=== PATIENT | male | born 1970 | race Caucasian/White ===

== ENCOUNTER 2021-06-26 11:42 | Outpatient (CLI) | payer OTHER, SELFPAY ==
[2021-06-26 11:48] VITALS: BMI 33.9
[2021-06-26 11:51] VITALS: BP 154/102; PULSE 73; RESP 19; TEMP 36.3; O2SAT 99
[2021-06-26 12:40] VITALS: BP 166/103; PULSE 81; RESP 16; O2SAT 97
[2021-06-26 13:38] VITALS: BP 149/97; PULSE 79; RESP 18; TEMP 36.9; O2SAT 95
== END 2021-06-26 11:43 | disposition home or self-care (01) ==
LOC: OPS 11:45
PROVIDERS: PCP Nurse Practitioner Family; Visit Provider Nurse Practitioner Family
DX: U07.1 COVID-19 (principal)
CPT/HCPCS: 96365

== ENCOUNTER 2022-11-01 06:53 | Day surgery (SDC) | payer OTHER, SELFPAY ==
[2022-10-30 09:33] VITALS: BMI 35.4
[2022-11-01 07:19] VITALS: BP 131/102; PULSE 75; RESP 16; TEMP 36.3; O2SAT 95
[2022-11-01] MEDS: sodium chloride 0.9% 1,000 ML 30 ML IV (07:27)
--- NOTE | 2022-11-01 08:01 | ANES.PREANE2 ---
Pre-Anesthetic Assessment Height/Weight: Height 1.83 m Weight 118.388 kg Temp Pulse Resp BP Pulse Ox O2 Del Method 97.4 F L 75 16 131/102 95 Room Air 11/01/22 07:19 11/01/22 07:19 11/01/22 07:19 11/01/22 07:19 11/01/22 07:19 11/01/22 07:19 Preop Diagnosis: GERD, Screening, Hematochezia, Nausea, Epigastric Pain. Operation Date: 11/01/22 08:30 Proposed Procedures p [address] egd, [address] colon K21.9,Z12.11, K92.1,R11.0,R10.13(Not Applicable) - DO alma Arias Colonoscopy(Not Applicable) - Marlon Garcias DO Familial anesthetic complications: none Was Beta Toni taken within 24 hours: N/A Was Clonidine taken within 24 hours: N/A Last intake: Intake Last Liquid Date 10/31/22 Last Liquid Time 22:00 Last Solid Date 10/30/22 Last Solid Time 00:00 Social No alcohol and No tobacco Exam alert, oriented x 3, clear to auscultation bilaterally and regular rate & rhythm Airway Submandibular: within normal limits Cervical ROM: within normal limits Mallampati: Class I Dentition: full Comments: Comments: micronathia Pulmonary Shortness of Breath CV/HEM Stable Angina Patient states he has SOB and epigastric pain that sometimes radiates to his back describes it as sharp. No personal cardiac history and no family history reports METS>4. 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 EKG ordered. None reported Hepatic None reported GI Gastroesophageal Reflux Disease epigastric pain, bloating. Metabolic None reported Musc/skel Lower Back Pain and Osteoarthritis/DJD Neuropsych None reported Anesthetic Plan ASA status: 2 Medications/Allergies Home Medications Medication Instructions Recorded Confirmed Last Taken Type tamsulosin 0.4 mg capsule (Flomax) 0.4 mg PO BID 90 days #180 caps 08/06/22 11/01/22 10/31/22 Rx pantoprazole 40 mg tablet,delayed 40 mg PO DAILY 10/30/22 11/01/22 10/31/22 History release (Protonix) hydrocortisone 2.5 % topical cream 1 applic [place] QID 10 days #30 grams 11/01/22 Unknown Rx with perineal applicator (Procto-Med HC) Allergies Allergy/AdvReac Type Severity Reaction Status Date / Time No Known Allergies Allergy Verified 10/29/22 10:49 Current Medications Generic Name Dose Route Start Last Admin Trade Name Ruben PRN Reason Stop Dose Admin Sodium Chloride 1,000 mls @ 30 mls/hr 11/01/22 07:00 11/01/22 07:27 Sodium Chloride 0.9% IV 11/02/22 06:59 30 mls/hr .Q24H YESSY Administration PFSH Anesthesia Surgical History (Updated 10/29/22 @ 11:55 by Marlon Garcias DO) Hx of hand surgery Right hand/ digit 3 Family History Father Cancer carcinoma Social History Smoking and tobacco status: never smoked Alcohol intake: never Data Anesthesia Cardiac Studies: No Data to Display
--- NOTE | 2022-11-01 08:07 | ECG_ITS ---
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 Measurements Intervals [place] Rate: 65 P: 23 MN: 226 QRS: -5 QRSD: 98 T: 62 QT: 416 QTc: 434 Interpretive Statements SINUS RHYTHM WITH FIRST DEGREE AV BLOCK INFERIOR MYOCARDIAL INFARCTION , PROBABLY OLD [40+ ms Q WAVE AND/OR ST/T ABNORMALITY IN II/aVF] No previous ECG available for comparison Electronically Signed On 11-01-2022 13:53:27 CDT by Jaorn Small M.D. [id number]
--- NOTE | 2022-11-01 08:42 | W.PM.OPSUD ---
Surgery/Procedure H&P Update DATE OF PROCEDURE: November 01, 2022 DATE H&P PERFORMED: 10/29/22 H&P UPDATE INFORMATION: I have reviewed H&P completed within last 30 days, I have examined patient prior to procedure and No changes to prior documentation PREOP DIAGNOSIS: GERD, Screening, Hematochezia, Nausea, Epigastric Pain. PLANNED PROCEDURE: Operation Date: 11/01/22 08:30 Proposed Procedures p 01606 egd, [address] colon K21.9,Z12.11, K92.1,R11.0,R10.13(Not Applicable) - DO alma Arias Colonoscopy(Not Applicable) - Marlon Garcias DO
[2022-11-01 09:22] VITALS: BP 147/109; PULSE 88; RESP 20; TEMP 36.1; O2SAT 95
[2022-11-01 09:32] VITALS: BP 158/86; PULSE 70; RESP 18; O2SAT 96
[2022-11-01 09:36] VITALS: BP 147/90; PULSE 68; O2SAT 94
--- NOTE | 2022-11-01 11:55 | ANE.PACU2 ---
Inpatient post-anesthesia follow up: Airway intact: Yes Vital signs: Temperature 97.0 F Pulse Rate 68 Respiratory Rate 18 Blood Pressure 147/90 Pulse Oximetry 94 Oxygen Delivery Me thod Room Air Oxygen Flow Rate Fraction of Inspir ed Oxygen Hydration adequate: Yes Nausea and vomiting: No Pain level: 2 Mental status: Baseline
== END 2022-11-01 09:55 | disposition home or self-care (01) ==
PROVIDERS: PCP Nurse Practitioner Family; Visit Provider Surgery
PROC: 0DJ08ZZ Inspection of Upper Intestinal Tract, Via Natural or Artificial Opening Endoscopic (ICD-10-PCS; CPT 43235; principal; 2022-11-01 08:30)
PROC: 0DJD8ZZ Inspection of Lower Intestinal Tract, Via Natural or Artificial Opening Endoscopic (ICD-10-PCS; CPT 45378; 2022-11-01 08:30)
DX: Z80.0 Family history of malignant neoplasm of digestive organs (principal); K21.9 Gastro-esophageal reflux disease without esophagitis; K92.1 Melena; R19.4 Change in bowel habit; R06.02 Shortness of breath; R10.13 Epigastric pain; R14.0 Abdominal distension (gaseous); M19.90 Unspecified osteoarthritis, unspecified site; I44.0 Atrioventricular block, first degree; B96.81 Helicobacter pylori [H. pylori] as the cause of diseases classified elsewhere; K29.50 Unspecified chronic gastritis without bleeding; K29.80 Duodenitis without bleeding; D12.3 Benign neoplasm of transverse colon; D12.5 Benign neoplasm of sigmoid colon; K64.8 Other hemorrhoids; K57.30 Diverticulosis of large intestine without perforation or abscess without bleeding
CPT/HCPCS: 43239; 45385; 88305; 88342; 93005; J2704; J7030

== ENCOUNTER 2022-11-07 06:37 | Outpatient (CLI) | payer OTHER, SELFPAY ==
--- NOTE | 2022-11-07 07:15 | US_ITS ---
WS: [id number] RIGHT UPPER QUADRANT ULTRASOUND HISTORY: Abdominal pain after eating. COMPARISON: CT abdomen 05/08/2016 Liver: 18.7 cm in length. Liver is moderately enlarged. Very dense liver with increased echogenicity and attenuation. The entire liver is not visualized. No mass is identified. Portal Vein: Normal hepatopetal flow with monophasic waveform. Gallbladder: Normally distended gallbladder. Near the neck of the gallbladder is an area of increased density. There is some shadowing along the posterior aspect of this structure but there is adjacent shadowing. The gallbladder also due to body habitus. Unable to penetrate to this a depth for breast e valuation. Suspicious for a stone. Mild diffuse gallbladder wall thickening up to 3.6 mm. CBD: 0.3 cm Pancreas: Not visualized. There is a large amount of visceral fat anteriorly. Right kidney: 10.7 cm in length. Normal size kidney. Parapelvic cyst measures 1.8 x 1.7 x 1.7 cm. Aorta and IVC: Limited visualization. No ascites. US/US gall bladder [id number] IMPRESSION: 1. Technically very difficult and limited evaluation of the RIGHT upper quadra nt. 2. Enlarged liver with hepatic steatosis. 3. Mild diffuse gallbladder wall thickening with no pericholecystic fluid. 4. Focus with shadowing near the neck of the gallbladder. Suspect this is prob ably cholelithiasis. Due to the deep location of the gallbladder neck ultrasoun d penetration was not possible. Highly suspicious for stones. 5. Nonvisualization of the pancreas.
== END 2022-11-07 06:38 | disposition home or self-care (01) ==
PROVIDERS: PCP Nurse Practitioner Family; Visit Provider Surgery
DX: K21.9 Gastro-esophageal reflux disease without esophagitis (principal); R10.13 Epigastric pain; R11.0 Nausea; K76.0 Fatty (change of) liver, not elsewhere classified; K82.9 Disease of gallbladder, unspecified
CPT/HCPCS: 76705

== ENCOUNTER 2022-12-04 09:08 | Day surgery (SDC) | payer OTHER, SELFPAY ==
[2022-12-03 08:17] VITALS: BMI 33.0
[2022-12-04] MEDS: sodium chloride 0.9% 1,000 ML 30 ML IV (09:35)
[2022-12-04 09:36] VITALS: BP 161/113; PULSE 68; RESP 17; TEMP 36.6; O2SAT 98
--- NOTE | 2022-12-04 11:34 | ANES.PREANE2 ---
Pre-Anesthetic Assessment Height/Weight: Height 1.85 m Weight 113.398 kg Temp Pulse Resp BP Pulse Ox O2 Del Method 97.9 F 68 17 161/113 98 Room Air 12/04/22 09:36 12/04/22 09:36 12/04/22 09:36 12/04/22 09:36 12/04/22 09:36 12/04/22 09:36 Preop Diagnosis: hematochezia Operation Date: 12/04/22 10:45 Proposed Procedures p Sigmoidoscopy(Not Applicable) - Marlon Garcias DO Familial anesthetic complications: none Was Beta Toni taken within 24 hours: N/A Was Clonidine taken within 24 hours: N/A Last intake: Intake Last Liquid Date 12/03/22 Last Liquid Time 21:00 Last Solid Date 12/02/22 Last Solid Time 19:00 Social No alcohol and No tobacco Exam alert, oriented x 3, clear to auscultation bilaterally and regular rate & rhythm Airway Submandibular: within normal limits Cervical ROM: within normal limits Mallampati: Class III Dentition: full Pulmonary None reported CV/HEM Hypertension None reported Hepatic None reported GI Gastroesophageal Reflux Disease (controlled) Metabolic None reported Musc/skel None reported Neuropsych None reported Anesthetic Plan ASA status: 2 Anesthesia: MAC Risk of > 500 ml blood loss (7ml/kg in children): No Medications/Allergies Home Medications Medication Instructions Recorded Confirmed Last Taken Type tamsulosin 0.4 mg capsule (Flomax) 0.4 mg PO BID 90 days #180 caps 08/06/22 12/04/22 12/02/22 Rx amoxicillin 500 mg tablet 1,000 mg PO BID 14 days #56 tabs 11/21/22 12/04/22 12/02/22 Rx clarithromycin 500 mg tablet 500 mg PO BID 14 days #28 tabs 11/21/22 12/04/22 12/02/22 Rx pantoprazole 40 mg tablet,delayed 40 mg PO BID 6 weeks #84 tabs 11/21/22 12/04/22 12/02/22 Rx release (Protonix) Allergies Allergy/AdvReac Type Severity Reaction Status Date / Time No Known Allergies Allergy Verified 12/04/22 09:31 Current Medications Generic Name Dose Route Start Last Admin Trade Name Freq PRN Reason Stop Dose Admin Sodium Chloride 1,000 mls @ 30 mls/hr 12/04/22 09:30 12/04/22 09:35 Sodium Chloride 0.9% IV 12/05/22 09:29 30 mls/hr .Q24H YESSY Administration PFSH Anesthesia Surgical History Hx of hand surgery Right hand/ digit 3 Family History Father Cancer carcinoma Social History Smoking and tobacco status: never smoked Alcohol intake: never Data Anesthesia Cardiac Studies: No Data to Display
--- NOTE | 2022-12-04 12:13 | W.PM.OPSUD ---
Surgery/Procedure H&P Update DATE OF PROCEDURE: December 04, 2022 DATE H&P PERFORMED: 10/22/22 H&P UPDATE INFORMATION: I have reviewed H&P completed within last 30 days, I have examined patient prior to procedure and Changes to prior documentation as noted here (Procedure will be sigmoidoscopy) PREOP DIAGNOSIS: hematochezia PLANNED PROCEDURE: Operation Date: 12/04/22 10:45 Proposed Procedures p Sigmoidoscopy(Not Applicable) - Marlon Garcias DO
[2022-12-04 12:32] VITALS: BP 133/88; PULSE 67; RESP 16; TEMP 36.1; O2SAT 96
[2022-12-04 12:39] VITALS: BP 128/85; PULSE 69; RESP 18; O2SAT 95
--- NOTE | 2022-12-04 14:26 | ANE.PACU2 ---
Inpatient post-anesthesia follow up: Airway intact: Yes Vital signs: Temperature 97 F Pulse Rate 69 Respiratory Rate 18 Blood Pressure 128/85 Pulse Oximetry 95 Oxygen Delivery Me thod Room Air Oxygen Flow Rate Fraction of Inspir ed Oxygen Hydration adequate: Yes Nausea and vomiting: No Pain level: 1 Mental status: Baseline
== END 2022-12-04 12:52 | disposition home or self-care (01) ==
PROVIDERS: PCP Nurse Practitioner Family; Visit Provider Surgery
PROC: 0DJD8ZZ Inspection of Lower Intestinal Tract, Via Natural or Artificial Opening Endoscopic (ICD-10-PCS; CPT 45330; principal; 2022-12-04 10:45)
DX: Z86.010 Personal history of colon polyps (principal); K92.1 Melena; K21.9 Gastro-esophageal reflux disease without esophagitis; R10.13 Epigastric pain; R11.0 Nausea; K51.40 Inflammatory polyps of colon without complications; I10 Essential (primary) hypertension; K57.30 Diverticulosis of large intestine without perforation or abscess without bleeding
CPT/HCPCS: 45338; 88305; J2704; J7030

== ENCOUNTER 2023-01-10 07:42 | Outpatient (CLI) | payer OTHER, SELFPAY ==
--- NOTE | 2023-01-10 07:45 | USCV_ITS ---
Jeff Larsen Age: 52 Gender: M : 1970 Exam Date: 01/10/2023 07:47 Ordering Phys: Jaron Small M.D ([email or web address]) Technologist: CT Exam Location: [facility] [place] Indication: sob BP: 130 / 78 HR: 56 Rhythm: Sinus Technical Quality: Adequate MEASUREMENTS (Male / Female) Normal Values 2D ECHO LV Diastolic Diameter PLAX 5.9 cm 4.2 - 5.9 / 3.9 - 5.3 cm LV Systolic Diameter PLAX 4.1 cm IVS Diastolic Thickness 1.3 cm 0.6 - 1.0 / 0.6 - 0.9 cm IVS Systolic Thickness 1.9 cm LVPW Diastolic Thickness 1.3 cm 0.6 - 1.0 / 0.6 - 0.9 cm LVPW Systolic Thickness 1.3 cm LVOT Diameter 2.0 cm LV Ejection Fraction 2D Teich 56.3 % LV Ejection Fraction MOD 2C 49.3 % LV Ejection Fraction 2C AL 50.7 % LA Diameter 4.7 cm Aorta at Sinotubular Diameter 2.5 cm IVC Diameter 1.8 cm M-MODE Aortic Annulus Diameter 3.6 cm LA Ao Ratio MM 1.5 MV E Point Septal Separation 0.7 cm DOPPLER AV Peak Velocity 149.0 cm/s LVOT Peak Velocity 83.0 cm/s AV Area Cont Eq vti 1.8 cm squared AV Area Cont Eq pk 1.8 cm squared MV Peak Velocity 100.0 cm/s MV Area PHT 4.4 cm squared Mitral E to A Ratio 1.1 MV E' Velocity 56.5 cm/s Mitral E to MV E' Ratio 11.6 Mitral E to LV E' Lateral Ratio 9.6 Mitral E to LV E' Septal Ratio 15.1 TR Peak Velocity 80.0 cm/s TR Peak Gradient 2.6 mmHg TV Peak E Velocity 80.0 cm/s Right Atrial Pressure 3.0 mmHg Pulmonary Artery Systolic Pressu 5.6 mmHg PV Peak Velocity 120.0 cm/s RV Acceleration Time 0.1 s FINDINGS Left Ventricle Left ventricle is normal in size. LV systolic function is normal with EF of 55-60%. No regional wall motion abnormalities are seen. Right Ventricle Normal in size and function Right Atrium Normal in size Left Atrium Normal in size. Echogenic structure is noted in the left atrium. Mitral Valve Structurally normal mitral valve. Trace mitral regurgitation. Aortic Valve Structurally normal aortic valve. No significant stenosis or regurgitation. Tricuspid Valve Mild tricuspid regurgitation. Pulmonic Valve Not well visualized Pericardium Normal Aorta Normal in size IVC Appears to be normal CONCLUSIONS LV systolic function is normal with EF of 55 to 60%. Echogenic structure noted in the left atrium Trace mitral regurgitation Mild tricuspid regurgitation No comparison studies available Jaron Small MD (Electronically Signed) Final Date: 22 January 2023 11:04 S
== END 2023-01-10 07:43 | disposition home or self-care (01) ==
PROVIDERS: PCP Nurse Practitioner Family; Visit Provider Internal Medicine
DX: R06.02 Shortness of breath (principal)
CPT/HCPCS: 93306

== ENCOUNTER 2023-06-28 19:59 | Emergency (ER) | payer OTHER, SELFPAY ==
--- NOTE | 2023-06-28 20:01 | XRR_ITS ---
PROCEDURE INFORMATION: Exam: XR Chest Exam date and time: 06/28/2023 8:28 PM Age: 52 years old Clinical indication: Chest pressure; Patient HX: Sudden onset chest/lt arm pain; HTN TECHNIQUE: Imaging protocol: Radiologic exam of the chest. Views: 1 view. COMPARISON: No relevant prior studies available. FINDINGS: Lungs: Clear, symmetrically inflated lungs. Lung volumes are low. Pleural spaces: No pleural effusion. No pneumothorax. Heart/Mediastinum: Cardiac silhouette is normal in size for technique. Bones/joints: Age appropriate. XR/XR chest 1V portable [id number] IMPRESSION: No acute cardiopulmonary abnormality.
--- NOTE | 2023-06-28 20:02 | ED_ITS ---
Documented by User: Memo Forde MD 06/29/23 10:33 HPI - Chest Pain 2 General: Chief Complaint: Chest Pain Stated Complaint: Chest Pains Time Seen by Provider: 06/28/23 20:01 [facility] ED 2 PFSH: Surgical History Hx of hand surgery Right hand/ digit 3 Family History Father Cancer carcinoma Social History Smoking and tobacco/nicotine status: never used tobacco/nicotine Alcohol intake: never Physical Exam 2 Neuro: YANE COMA SCALE: document GCS findings Yane coma scale total score: 15 Course 2 Vital Signs: Vital signs: Vital Signs Temperature 97.9 F 06/28/23 20:03 Pulse Rate 72 06/29/23 00:38 Respiratory Rate 18 06/29/23 00:38 Blood Pressure 121/82 06/29/23 00:38 Pulse Oximetry 92 06/29/23 00:38 Oxygen Delivery Me thod Room Air 06/28/23 20:03 MDM - Chest Pain Lab Data 06/28/23 20:27 06/28/23 20:27 Radiology Impressions Chest X-Ray 06/28/23 20:01 IMPRESSION: No acute cardiopulmonary abnormality. Laboratory Results WBC 6.11 10^3/uL (3.29-11.43) 06/28/23 20:27 RBC 5.16 10^6/uL (3.85-5.65) 06/28/23 20:27 Hgb 15.60 g/dL (11.27-16.99) 06/28/23 20:27 Hct 44.6 % (37-53) 06/28/23 20:27 MCV 86.4 fl (82-101) 06/28/23 20: MCH 30.2 pg (27-33) 06/28/23 20: MCHC 35.0 g/dL (30-55) 06/28/23 20:27 RDW 12.5 % (12.1-15.1) 06/28/23 20:27 Plt Count 219 10^3/cmm (157-399) 06/28/23 20:27 MPV 11.5 fL (7.4-10.4) H 06/28/23 20: Neut % (Auto) 55.3 % 06/28/23: Lymph % (Auto) 32.9 % 06/28/23 20: [place] % (Auto) 8.7 % 06/28/23 20: Eos % (Auto) 2.3 % 06/28/23: Baso % (Auto) 0.5 % 06/28/23: Neut # (Auto) 3.38 10^3/uL (1.8-7.7) 06/28/23: Lymph # (Auto) 2.0 10^3/uL (0.8-4.8) 06/28/23: [place] # (Auto) 0.5 10^3/uL (0.2-0.9) 06/28/23: Eos # (Auto) 0.1 10^3/uL (0.0-0.8) 06/28/23: Baso # (Auto) 0.0 10^3/uL (0.0-0.1) 06/28/23: Nucleated RBC % (auto) 0 % 06/28/23 Nucleated RBCs # 0.0 /100WBC 06/28/23: PT 13.00 SECONDS (12.1-14.9) 06/28/23 20: INR 0.95 (0.8-1.2) 06/28/23: APTT 27.9 SECONDS (23.9-36.7) 06/28/23 20: Sodium 141 mmol/L (136-145) 06/28/23 20: Potassium 3.8 mmol/L (3.5-5.1) 06/28/23: Chloride 102 mmol/L (98-107) 06/28/23: Carbon Dioxide 26 mmol/L (22-29) 06/28/23 20: Anion Gap 16.8 (5-19) 06/28/23 20: BUN 18 mg/dL (6-20) 06/28/23 20: Creatinine 1.5 mg/dL (0.7-1.2) H 06/28/23 20: GFR Calculation 49.0 mL/min (90-130) L 06/28/23 20:27 Glucose 96 mg/dL (65-115) 06/28/23 20:27 Calculated Osmolality 294 mOsm/kg (285-295) 06/28/23 20:27 Calcium 9.6 mg/dL (8.5-10.5) 06/28/23 20:27 Total Bilirubin 0.7 mg/dL (0.15-1.2) 06/28/23 20:27 AST 29 U/L (0-40) 06/28/23 20:27 ALT 69 U/L (0-41) H 06/28/23 20:27 Alkaline Phosphatase 102 U/L (40-130) 06/28/23 20:27 Troponin T Baseline 8 ng/L (0-15) 06/28/23 20:27 Troponin T 120 Minute 7.95 ng/L (0-15) 06/28/23 22:51 Delta Troponin T -0.05 ABS# (0-10) L 06/28/23 22:51 NT-Pro-B Natriuret Pep < 36 pg/mL (0-125) 06/28/23 20:27 Total Protein 6.8 g/dL (6.6-8.7) 06/28/23 20:27 Albumin 4.5 g/dL (3.5-5.2) 06/28/23 20:27 Globulin 2.3 g/dL (1.3-4.6) 06/28/23 20:27 All radiology interpretation(s) finalized by discharge Discharge Plan Discharge Patient Disposition: Home Clinical Impression: Chest pain Condition: Stable Prescriptions: No Action pantoprazole [Protonix] 40 mg tablet,delayed release (DR/EC) 40 mg PO BID 42 Days Qty: 84 0RF tamsulosin [Flomax] 0.4 mg capsule 0.4 mg PO BID 90 Days Qty: 180 1RF Discharge Orders: Discharge ED (Routine); Ordered 06/29/23 Ordered By: Abundio Flores Referrals: Toribio,SUKHDEV ChenN [Primary Care Provider] - 1-3 days Patient Instructions: Chest Pain (ED), Opioid Safety, Pain Management Activity Restrictions/Additional Instructions: Return for any return of your symptoms. You should get a call next week regarding an outpatient stress test. Follow-up with your doctor next week. Coding Level of Care Code ED E Business Consultant for Chg Fwd Documented by User: Abundio Flores, 06/29/23 20:55 HPI - Chest Pain 2 General: Chief Complaint: Chest Pain Stated Complaint: Chest Pains Time Seen by Provider: 06/28/23 20:01 History of Present Illness: 52-year-old male with no known history o f coronary disease. 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 He was short of breath and diaphoretic as well. Pain is resolved now. He is no longer short of breath. He notes that he is really tired and was more so even after the episode. He has noted some swelling in his feet bilaterally lately. He was placed on blood pressure medicine recently, with improvement in his blood pressure. He evidently had a colonoscopy a couple of months ago, and had an abnormal EKG at that time. Echo was done, and stress test was suggested that insurance would not cover it. Associated symptoms: Deny abdominal pain, fever(s), nausea, palpitations or vomiting Review of Systems 2 Const: Denies: fever(s), chills or body aches Eyes: Denies: change in vision Card: Denies: palpitations Resp: Denies: productive cough, non-productive cough or wheezing GI: Denies: abdominal pain, nausea, vomiting, diarrhea or hematochezia Skin/Breast: Denies: rash Neuro: Denies: headache(s), weakness in extremities, dizziness or confusion PFSH ED 2 PFSH: Surgical History Hx of hand surgery Right hand/ digit 3 Family History Father Cancer carcinoma Social History Smoking and tobacco/nicotine status: never used tobacco/nicotine Alcohol intake: never Physical Exam 2 Const: COMMON NORMALS: no acute distress GENERAL APPEARANCE: cooperative; not ill appearing and not frail appearing HENMT: COMMON NORMALS: normocephalic, atraumatic and Normal external nose present HEAD & SCALP: normocephalic and atraumatic FACE & SINUS: normal facial exam and face symmetric NOSE: Normal external nose present Eye: COMMON NORMALS: Equal, round and reactive pupils present and EOMs intact bilaterally PUPIL: Yes Equal, round and reactive pupils present Neck/C-Spine: GENERAL: Yes trachea midline Chest: CHEST: Yes Symmetrical chest wall rise Resp: COMMON NORMALS: normal respiratory effort, No retractions, No use of accessory muscles and clear to auscultation bilaterally AUSCULTATION: clear to auscultation bilaterally Cardio: COMMON NORMALS: regular rate and regular rhythm RATE: regular rate RHYTHM: regular rhythm GI: COMMON NORMALS: Normal to inspection, nondistended, normoactive bowel sounds present Extremity: COMMON NORMALS: no pedal edema Neuro: YANE COMA SCALE: document GCS findings Yane coma scale eye opening: Spontaneous Yane coma scale verbal response: Orientated [place] coma scale motor response: Obey commands Yane coma scale total score: 15 S ENSORY EXAM: Yes extremities (intact) Psych: COMMON NORMALS: speech normal SPEECH: Yes normal speech Skin: COMMON NORMALS: no rashes or lesions noted GENERAL SKIN EXAM: no rashes or lesions noted Course 2 Vital Signs: Vital signs: Vital Signs Temperature 97.9 F 06/28/23 20:03 Pulse Rate 72 06/29/23 00:38 Respiratory Rate 18 06/29/23 00:38 Blood Pressure 121/82 06/29/23 00:38 Pulse Oximetry 92 06/29/23 00:38 Oxygen Delivery Me thod Room Air 06/28/23 20:03 MDM - Chest Pain Medical Decision Making Initial EKG shows a sinus rhythm at 75 with normal axis and intervals. There are Q waves present in 3 and aVF., No acute ST wave changes. He is normotensive. Vitals are stable. CBC is normal. Creatinine is 1.5. Chest x- ray is negative. First troponin is 8, with a delta of 0. His chest pain is resolved. He will be allowed discharge. His story, however, is mildly concerning given onset of more classic symptoms with exertion such as chopping wood. He is encouraged to follow-up. Will ask case management to schedule him a stress test Lab Data 06/28/23 20:27 06/28/23 20: Radiology Impressions Chest X-Ray 06/28/23 20: IMPRESSION: No acute cardiopulmonary abnormality. Laboratory Results WBC 6.11 10^3/uL (3.29-11.43) 06/28/23 20: RBC 5.16 10^6/uL (3.85-5.65) 06/28/23: Hgb 15.60 g/dL (11.27-16.99) 06/28/23 20: Hct 44.6 % (37-53) 06/28/23 20: MCV 86.4 fl (82-101) 06/28/23: MCH 30.2 pg (27-33) 06/28/23: MCHC 35.0 g/dL (30-55) 06/28/23: RDW 12.5 % (12.1-15.1) 06/28/23: Plt Count 219 10^3/cmm (157-399) 06/28/23: MPV 11.5 fL (7.4-10.4) H 06/28/23: Neut % (Auto) 55.3 % 06/28/23: Lymph % (Auto) 32.9 % 06/28/23: [place] % (Auto) 8.7 % 06/28/23: Eos % (Auto) 2.3 % 06/28/23 Baso % (Auto) 0.5 % 06/28/23 Neut # (Auto) 3.38 10^3/uL (1.8-7.7) 06/28/23: Lymph # (Auto) 2.0 10^3/uL (0.8-4.8) 06/28/23: [place] # (Auto) 0.5 10^3/uL (0.2-0.9) 06/28/23 20: Eos # (Auto) 0.1 10^3/uL (0.0-0.8) 06/28/23: Baso # (Auto) 0.0 10^3/uL (0.0-0.1) 06/28/23 20:27 Nucleated RBC % (auto) 0 % 06/28/23 20: Nucleated RBCs # 0.0 /100WBC 06/28/23 20: PT 13.00 SECONDS (12.1-14.9) 06/28/23 20: INR 0.95 (0.8-1.2) 06/28/23 20: APTT 27.9 SECONDS (23.9-36.7) 06/28/23 20:27 Sodium 141 mmol/L (136-145) 06/28/23 20:27 Potassium 3.8 mmol/L (3.5-5.1) 06/28/23 20: Chloride 102 mmol/L (98-107) 06/28/23 20: Carbon Dioxide 26 mmol/L (22-29) 06/28/23 20: Anion Gap 16.8 (5-19) 06/28/23 20: BUN 18 mg/dL (6-20) 06/28/23 20: Creatinine 1.5 mg/dL (0.7-1.2) H 06/28/23 20:27 GFR Calculation 49.0 mL/min (90-130) L 06/28/23 20: Glucose 96 mg/dL (65-115) 06/28/23 20: Calculated Osmolality 294 mOsm/kg (285-295) 06/28/23 20: Calcium 9.6 mg/dL (8.5-10.5) 06/28/23 20: Total Bilirubin 0.7 mg/dL (0.15-1.2) 06/28/23 20: AST 29 U/L (0-40) 06/28/23 20:27 ALT 69 U/L (0-41) H 06/28/23 20:27 Alkaline Phosphatase 102 U/L (40-130) 06/28/23 20:27 Troponin T Baseline 8 ng/L (0-15) 06/28/23 20: Troponin T 120 Minute 7.95 ng/L (0-15) 06/28/23 22:51 Delta Troponin T -0.05 ABS# (0-10) L 06/28/23 22:51 NT-Pro-B Natriuret Pep < 36 pg/mL (0-125) 06/28/23 20:27 Total Protein 6.8 g/dL (6.6-8.7) 06/28/23 20:27 Albumin 4.5 g/dL (3.5-5.2) 06/28/23 20:27 Globulin 2.3 g/dL (1.3-4.6) 06/28/23 20:27 Discharge Plan Discharge Patient Disposition: Home Clinical Impression: Chest pain Condition: Stable Prescriptions: No Action pantoprazole [Protonix] 40 mg tablet,delayed release (DR/EC) 40 mg PO BID 42 Days Qty: 84 0RF tamsulosin [Flomax] 0.4 mg capsule 0.4 mg PO BID 90 Days Qty: 180 1RF Discharge Orders: Discharge ED (Routine); Ordered 06/29/23 Ordered By: Abundio Flores Referrals: Toribio,April VARNISH BLENDER [Primary Care Provider] - 1-3 days Patient Instructions: Chest Pain (ED), Opioid Safety, Pain Management Activity Restrictions/Additional Instructions: Return for any return of your symptoms. You should get a call next week regarding an outpatient stress test. Follow-up with your doctor next week. Coding Level of Care Code ED E Business Consultant for Jeffrey Landaverde
[2023-06-28 20:03] VITALS: BP 147/88; PULSE 82; RESP 16; TEMP 36.6; O2SAT 95; BMI 33.0
--- NOTE | 2023-06-28 20:04 | ECG_ITS ---
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 Measurements Intervals [place] Rate: 74 P: 27 MN: 217 QRS: -2 QRSD: 109 T: 7 QT: 375 QTc: 417 Interpretive Statements SINUS RHYTHM WITH FIRST DEGREE AV BLOCK VOLTAGE CRITERIA FOR LVH [MEETS CRITERIA IN ONE OF: R(aVL), S(V1), R(V5), R(V5/V6)+S(V1)] POSSIBLE ANTERIOR MYOCARDIAL INFARCTION , OF INDETERMINATE AGE [30 ms Q WAVE IN V3/V4, OR R < 0.2 mV IN V4] INFERIOR MYOCARDIAL INFARCTION , PROBABLY OLD [40+ ms Q WAVE AND/OR ST/T ABNORMALITY IN II/aVF] Compared to ECG 11/01/2022 08:18:11 Left ventricular hypertrophy now present Myocardial infarct finding still present Electronically Signed On 06-29-2023 8:35:58 [employer] by Stevie Tapia M.D. [id number]
[2023-06-28] MEDS: aspirin 81 mg Chew Tablet 324 MG PO (20:38)
[2023-06-28 20:41] LABS: Basophils % 0.5 %; Eosinophils # 0.1 10^3/uL (0.0-0.8); Eosinophils % 2.3 %; Hematocrit 44.6 % (37-53); Lymphocytes % 32.9 %; Mean Corpuscular Hemoglobin 30.2 pg (27-33); Mean Corpuscular Volume 86.4 fl (82-101); Mean Platelet Volume 11.5 fL (7.4-10.4); Monocytes # 0.5 10^3/uL (0.2-0.9); Monocytes % 8.7 %; Neutrophils # 3.38 10^3/uL (1.8-7.7); Neutrophils % 55.3 %; Nucleated Red Blood Cells % 0 %; Platelet Count 219 10^3/cmm (157-399); Red Blood Count 5.16 10^6/uL (3.85-5.65); Red Cell Distribution Width 12.5 % (12.1-15.1); White Blood Count 6.11 10^3/uL (3.29-11.43)
[2023-06-28 20:54] LABS: INR 0.95 (0.8-1.2); Partial Thromboplastin Time 27.9 SECONDS (23.9-36.7)
[2023-06-28 21:00] LABS: Troponin(5th) Baseline 8 ng/L (0-15)
[2023-06-28 21:16] LABS: Alanine Aminotransferase 69 U/L (0-41); Albumin Level 4.5 g/dL (3.5-5.2); Alkaline Phosphatase 102 U/L (40-130); Anion Gap 16.8 (5-19); Aspartate Amino Transferase 29 U/L (0-40); Blood Urea Nitrogen 18 mg/dL (6-20); Calcium 9.6 mg/dL (8.5-10.5); Carbon Dioxide 26 mmol/L (22-29); Chloride 102 mmol/L (98-107); Globulin 2.3 g/dL (1.3-4.6); Glucose 96 mg/dL (65-115); NT Pro B Type Natriuretic Pept < 36 pg/mL (0-125); Osmolality Calculated 294 mOsm/kg (285-295); Potassium 3.8 mmol/L (3.5-5.1); Sodium 141 mmol/L (136-145); Total Bilirubin 0.7 mg/dL (0.15-1.2); Total Protein 6.8 g/dL (6.6-8.7)
[2023-06-28 22:06] VITALS: BP 122/86; PULSE 78; RESP 20; O2SAT 92
[2023-06-28 23:00] VITALS: BP 135/90; PULSE 73; RESP 16; O2SAT 93
[2023-06-28 23:26] LABS: Troponin 5 2HR 7.95 ng/L (0-15)
[2023-06-28 23:36] LABS: Troponin 5 2HR Delta -0.05 ABS# (0-10)
--- NOTE | 2023-06-28 23:37 | ECG_ITS ---
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 Measurements Intervals [place] Rate: 70 P: 13 MI: 212 QRS: 2 QRSD: 104 T: 10 QT: 390 QTc: 422 Interpretive Statements SINUS RHYTHM WITH FIRST DEGREE AV BLOCK MODERATE VOLTAGE CRITERIA FOR LVH, CONSIDER NORMAL VARIANT [MEETS CRITERIA IN ONE OF: R(aVL), S(V1), R(V5), R(V5/V6)+S(V1)] POSSIBLE ANTERIOR MYOCARDIAL INFARCTION , OF INDETERMINATE AGE [30 ms Q WAVE IN V3/V4, OR R < 0.2 mV IN V4] INFERIOR MYOCARDIAL INFARCTION , PROBABLY OLD [40+ ms Q WAVE AND/OR ST/T ABNORMALITY IN II/aVF] Compared to ECG 06/28/2023 20:04:39 No significant changes Electronically Signed On 06-29-2023 8:40:42 DESKIDDING MACHINE OPERATOR by Stevie Tapia M.D. [id number]
[2023-06-29 00:38] VITALS: BP 121/82; PULSE 72; RESP 18; O2SAT 92
== END 2023-06-29 00:44 | disposition home or self-care (01) ==
PROVIDERS: Internal Medicine; Emergency Provider Emergency Medicine; PCP Nurse Practitioner Family
DX: R07.9 Chest pain, unspecified (principal)
CPT/HCPCS: 36415; 71045; 80053; 83880; 84484; 85025; 85610; 85730; 93005; 99285

== ENCOUNTER 2023-07-18 07:58 | Outpatient (CLI) | payer OTHER, SELFPAY ==
--- NOTE | 2023-07-18 | ECG_ITS ---
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 Interpretive Statements NAME OF STUDY: EXERCISE SESTAMIBI STRESS TEST INDICATION: [Chest Pain, ] EXERCISE DATA: The patient was exercised by Servando protocol. Baseline heart rate was 65 beats per minute. Baseline blood pressure was 136/89 millimeters of mercury. Target heart rate was 142 beats per minute. Maximum heart rate achieved was 154, which was 108% of the target heart rate. Maximum blood pressure was 199/81 millimeters of mercury. Total exercise time was 7 minutes 1 seconds. Maximum METs achieved was 10.2. ELECTROCARDIOGRAM: BASELINE: Showed sinus rhythm, normal axis, no significant ST-T changes at the baseline noted. [] EXERCISE: At the peak exercise level, [] No significant ST-T changes suggestive of ischemia noted. [] RECOVERY: During the recovery period, heart rate dropped appropriately. No significant ST-T changes in the recovery suggestive of ischemia noted. [] CONCLUSION: 1. Exercise capacity is good. 2. Heart rate response was appropriate. 3. Blood pressure response was appropriate. 4. Symptoms not suggestive of ischemia. 5. Electrocardiogram portion of the stress test was not suggestive of ischemia. 6. Nuclear scan will be documented separately. Electronically Signed On 08-10-2023 20:01:36 TAX DIRECTOR by Jaron Small M.D. [id number]
--- NOTE | 2023-07-18 08:24 | NMCV_ITS ---
NM erlin perf SPECT r/s* [id number] Jeff Larsen Age: 52 Gender: M : 1970 Exam Date: 07/18/2023 09:07 Ordering Phys: Esteban Velasquez DO Technologist: PRESTON Maya Exam Location: [facility] Indications: CHEST PAIN STRESS TEST Please see separate stress test report in Ephiphany for full findings IMAGE PROTOCOL Rest/Stress 1 Exercise Day Radiopharmaceutical Dose (mCi) Administration Site Administered by Rest: Tc-99m 10.8 IV PRESTON Bedolla Sestamibi Stress:Tc-99m 33.0 IV PRESTON Maya Sestamipatrick Rest: 18-Jul-2023 60 Discovery 630 Stress: 18-Jul-2023 15 Discovery 630 Radiopharmaceutical was injected at 85 % maximum heart rate. Images obtained in supine and prone position. SPECT RESULTS Technical Quality: Excellent Raw Data Analysis: Normal Image Corrections: No attenuation or motion correction applied Summed Stress Score: 8 Summed Rest Score: 7 Summed Difference Score: 2 PERFUSION FINDINGS There is a large sized fixed perfusion partially reversible perfusion defect noted in inferolateral wall. This is consistent with large area of prior infarct with small sized area of infarct ischemia in left circumflex artery territory. FUNCTIONAL RESULTS (calculated via Gated SPECT) Stress Image LV EF (%): 68 Stress EDV (mL):96 TID: 0.91 Stress ESV (mL):31 FUNCTIONAL FINDINGS: There is normal left ventricular systolic function. IMPRESSIONS 1. Abnormal nuclear perfusion imaging with large sized area of prior infarct with small sized area of zora-infarct ischemia seen in left circumflex artery territory. 2. LV systolic function is normal Jaron Small MD (Electronically Signed) Final Date: 19 July 2023 11:02 S
[2023-07-18 08:25] VITALS: BMI 33.0
[2023-07-18 10:07] VITALS: BP 189/90; PULSE 89
== END 2023-07-18 07:59 | disposition home or self-care (01) ==
PROVIDERS: PCP Nurse Practitioner Family; Visit Provider Family Medicine
DX: R07.9 Chest pain, unspecified (principal); I25.2 Old myocardial infarction; R93.1 Abnormal findings on diagnostic imaging of heart and coronary circulation
CPT/HCPCS: 36415; 78452; 93017; 96374; A9500

== ENCOUNTER 2023-08-01 06:41 | Outpatient (CLI) | payer OTHER, SELFPAY ==
--- NOTE | 2023-08-01 07:15 | USR_ITS ---
PROCEDURE INFORMATION: Exam: US Duplex Bilateral Lower Extremity Arteries Exam date and time: 08/01/2023 7:27 AM Age: 52 years old Clinical indication: Pain; Leg, lower; Bilateral; Additional info: Bilateral leg pain TECHNIQUE: Imaging protocol: Real-time ultrasound scan of the arteries of the bilateral lower extremities with 2-D ford scale, color Doppler flow and spectral waveform analysis. Images documented and saved. COMPARISON: No relevant prior studies available. FINDINGS: Right common femoral artery: No occlusion or significant stenosis. Normal waveform. Right superficial femoral artery: No occlusion or significant stenosis. Normal waveform. Right popliteal artery: No occlusion or significant stenosis. Normal waveform. Right calf/foot arteries: No occlusion or significant stenosis in the visualized arteries. Normal waveforms. Dorsalis pedis artery is patent. Left common femoral artery: No occlusion or significant stenosis. Normal waveform. Left superficial femoral artery: No occlusion or significant stenosis. Normal waveform. Left popliteal artery: No occlusion or significant stenosis. Normal waveform. Left calf/foot arteries: No occlusion or significant stenosis in the visualized arteries. Normal waveforms. Dorsalis pedis artery is patent. Right ABIODUN equals 1.2. Left ABIODUN equals 1.2. US/[place] [id number] IMPRESSION: No stenosis or occlusion.
== END 2023-08-01 06:42 | disposition home or self-care (01) ==
LOC: RAD 06:42
PROVIDERS: PCP Nurse Practitioner Family; Visit Provider Internal Medicine
DX: M79.604 Pain in right leg (principal); M79.605 Pain in left leg
CPT/HCPCS: 93925

== ENCOUNTER 2023-08-07 07:00 | Outpatient (CLI) | payer OTHER, SELFPAY | END 2023-08-07 07:01 | disposition home or self-care (01) | LOC: RT 07:01 | PROVIDERS: PCP Nurse Practitioner Family; Visit Provider Internal Medicine | DX: R06.09 Other forms of dyspnea (principal); R06.02 Shortness of breath | CPT/HCPCS: 94010; 94726; 94729 ==

== ENCOUNTER 2024-06-10 09:17 | Day surgery (SDC) | payer OTHER, SELFPAY ==
[2024-06-10] VITALS (16 sets, daily range): BP systolic 132–153; BP diastolic 82–106; PULSE 60–78; RESP 14–20; TEMP 36.2–36.9; O2SAT 93–97; BMI 34.5
--- OUTSIDE RECORDS SUMMARY | 2024-06-10 09:19 | XMS_ITS ---
Author Name Unknown Organization [facility] Address [address] [place] [address] Care Team Providers Care Engraving Plate Maker Name Role Phone Rooney Betty Primary Care Provider MARILEE BETTY Unavailable Unavailable Allergies No Known Allergies Results Component Value Reference Range Notes CBC w\ Auto Diff [id number] Reviewed date:06/05/2024 10:00:52 PM Interpretation: Performing Lab: Notes/Report: Diagnosis Description: Essential (primary) hypertension WBC 4.6 4.5-11.0 X10'3 RBC 5.45 4.50-5.90 X10'6 Hgb 16.1 13.5-17.5 G/DL Hct 47.0 41.0-53.0 % MCV 86.2 80.0-100.0 FL MCH 29.5 27.0-31.0 PG MCHC 34.3 31.0-37.0 G/DL Platelet 200 150-400 X10'3 RDW-SD 39.3 35.0-49.0 FL RDW-CV 12.5 12.2-15.6 % MPV 11.7 9.2-12.0 FL Neutro Auto% 58.6 40.0-70.0 % Lymph Auto% 30.3 22.0-44.0 % [place] Auto% 7.2 3.0-7.0 % Eos Auto% 2.2 2.0-4.0 % Baso Auto% 1.5 0.0-1.0 % Imm Gran% .2 .0-.4 % Neutro Abs 2.67 .80-7.70 Absolute Neutrophil Count 2670 Lymph Abs 1.38 .10-4.10 [place] Abs .33 .20-1.00 Eos Abs .10 .00-.40 Baso Abs .07 .00-.20 Imm Gran Abs .01 .00-.10 NRBC# .00 .00-.20 NRBC% .00 .00-.20 /100 int act WBC's Comprehensive Metabolic Pane l [id number] Reviewed date:06/05/2024 10:01:26 PM Interpretation: Performing Lab: Notes/Report: Diagnosis Description: Essential (primary) hypertension Glucose Serum 97 71-110 MG/DL Testing perfor med at [facility], [address] [place] [address] [place] [address]. CLIA ID#: [id number] BUN 16 7-21 MG/DL Creat 1.23 .57-1.17 MG/DL X-qgcapx-v-benzoquinone imine (NAPQI) is a metabolite of acetaminophen, NAPQI concentrations of apparoximately 10 mg/L correlation to toxic levels of acetaminophen demonstrates a greater than or equil to 10% change in results. NAPQI concentrations greater than this may lead to falsely depressed results for patient samples. Use of this assay is not recommended for patients undergoing treatment with phenindione, due to the potential for falsely depressed results. GFR 69.2 Calculation per formed from GFR calculator provided by the National Kid[employer]. Glomerular Filtration rate(GRF) is the best overall index of kidney function. Normal GFR varies according to age,sex, body size, and declines with age. The National Kidney Foundation recommends using the CKD-EPI Creatinine Equation(2020) to estimate GFR. BUN/Creat Ratio 13.0 12.0-20.0 % Total Protein 7.1 5.8-8.0 G/DL Albumin 4.8 3.2-4.8 G/DL Globulin 2.3 2.3-3.5 G/DL Alb/Glob 2.1 0.8-2.2 Calcium 10.5 8.7-10.4 MG/DL Sodium 142 136-145 MMOL/L Potassium 4.6 3.5-5.1 MMOL/L Chloride 107 98-107 MMOL/L CO2 28.0 20.0-31.0 MMOL/L Anion Gap 12 5-15 Alk Phos 94 46-116 Bili Total 1.3 .3-1.2 MG/DL Use of this ass ay is not recommended for patients undergoing treatment with eltrombopag due to the potential for falsely elevated results. AST/SGOT 38 15-37 UNIT/L ALT/SGPT 68 12-78 UNIT/L Osmo Serum,Calculated 295 280-300 MOSM/KG Lipid Panel Reflex DLDL 8006 1, 36622 Reviewed date:06/05/2024 10:01:38 PM Interpretation: Performing Lab: Notes/Report: Diagnosis Description: Essential (primary) hypertension Trig 83 Classification Guidelines:Triglycerides Adults: >20yrs Desirable <150 Borderline High 150-199 High 200-499 Very high >=500 Children: Male 0-4 yr 22-99 5-9 yr 30-101 10-14 yr 32-125 15-19 yr 37-148 Children: Female 0-4 yr 34-112 5-9 yr 32-105 10-14 yr 37-131 15-19 yr 39-132 Chol 171 <=200 MG/DL HDL 50 30-72 MG/DL Reference Ranges:HDL Male: 5-9y 38-75 10-14y 37-74 15-19y 30-63 >=20y 40-59 Female: 5-9y 36-73 10-14y 37-70 15-19y 35-74 >=20y 40-59 CH/HDL 3.5 0.0-4.9 RATIO LDL 105 0-130 MG/DL LDL result is i naccurate , if Trig is >400 mg/dl. See DLDL result. REASON FOR VISIT Patient to clinic for 2 wk f/u Medications Medication SIG (Take, Route, Frequency, Duration) Notes Start Date End Date Status Losartan Potassium 25 MG 1 tablet Orally twice a day for 30 days 05/17/2024 Active Fluticasone Propionate 50 MCG/ACT 1 spray in each nostril Nasally Once a day for 30 days Not-Taking Benicar 20 MG 1 tablet Orally Once a day for 30 day(s) 06/10/2023 Not-Taking hydroCHLOROthiazide 25 MG 1 tablet in th e morning Orally Once a day for 30 day(s) 06/10/2023 Not-Taking Cetirizine HCl 10 mg TAKE ONE TABLET BY MOUTH DAILY for 30 Not-Taking Pantoprazole Sodium 40 mg TAKE ONE TABLE T BY MOUTH TWICE DAILY for 30 days Active Tamsulosin HCl 0.4 mg TAKE ONE CAPSULE B Y MOUTH TWICE DAILY for 90 days Active Social History Tobacco Use: Social History Observation Description Date Details (start date - stop date) Never Smoker NA - NA xTobacco Use/Smoking Question Answer Notes Are you a nonsmoker Vital Signs Temperature 97.2 degrees Fahrenheit 06/04/20 24 Blood pressure systolic 156 mm Hg 06/04/20 24 Blood pressure diastolic 101 mm Hg 024 Heart Rate 68 /min 06/04/2024 Respiratory Rate 18 /min 06/04/2024 Height 72 in 06/04/2024 Weight 256 lbs 06/04/2024 BMI 34.72 kg/m2 06/04/2024 Oximetry 98 % 06/04/2024 Height-cm 182.88 cm 06/04/2024 Weight-kg 116.12 kg 06/04/2024 Encounters Encounter Location Date Provider Diagnosis [facility] Office [address] [address] 06/04/2024 Betty Rooney Primary hypertension I10 and Cholecystitis K81.9 Assessments Encounter Date Diagnosis (ICD Code) Assessment Notes Treat ment Notes Treatment Clinical Notes 06/04/2024 Primary hypertension (ICD-10 - I10) losartan bid; monitor bp; cbc cmp lipids 06/04/2024 Cholecystitis (ICD-10 - K81.9) dr conway; surgery as planned 06/04/2024 Other Questions asked and answered; discharged to home. Venipuncture: Performed by: Tricia ZAMORA Attempts: x1 Location: [facility] Needle gauge: 21g Patient tolerated well. Plan Of Treatment Medication Medication Name Sig Start Date Stop Date Notes Losartan Potassium 25 MG 1 tablet Orally twice a day for 30 days 05/17/2024 Treatment Notes Assessment Notes Primary hypertension losartan bid; monit or bp; cbc cmp lipids Cholecystitis dr conway; surgery as planned Other Questions asked and answered; discharged to home. Next Appt Details Follow Up: 6 Weeks, Reason: recheck Provider Name:Betty Rooney, 09/03/2024 09:00:00 AM, [address] , [facility] [[email or web address] [address], [place], [address], Progress Notes * Jeff LARSEN DDOB:[birth year] (53 yo M)Acc No.[id number]:06/04/2024 Progress Notes Patient:?Jeff LARSEN Provider:?Betty Rooney APRN :1970???Age:53 Y???Sex:Male Khadar e:06/04/2024 Address:[address] [place] [address] , [id number] Check In:08:59 AM CSTCheck O ut:09:52 AM SENIOR BUSINESS OBJECTS DEVELOPER Subjective: * Chief Complaints: * ???Patient to clinic for 2 w k f/u * HPI: ???Provider Note:? patient is an alert 53 year old male known to practice and here for recheck? and medications; complains continue abd pain; states pain upper right and goes around to right upper back saw dr conway yesterday gallstones; surgery planned next week [place]; discussed with patient hypertension; increase losartan 25 mg to bid; monior bp; will draw labs this visit cbc cmp and lipids;? return clinic 6 weeks and prn. * ROS:?General - Multi System:?Gastrointestinal?REPORTS, abdominal pain.? * Medical History:? * Surgical History:?Colonoscop y ovi * Hospitalization/Major Diagno stic Procedure:?Denies Past Hospitalization * Family History:?Non-Contribu tory.? * Social History:?Tobacco Use:?xTobacco Use/Smoking?Are you a?nonsmoker ???Depression screen completed 05/17/2024 score 0. * Medications:?TakingLosartan Potassium 25 MG Tablet 1 tablet Orally Once a day Tamsulosin HCl 0.4 mg Capsule TAKE ONE CAPSULE BY MOUTH TWICE DAILY Pantoprazole Sodium 40 mg Tablet Delayed Release TAKE ONE TABLET BY MOUTH TWICE DAILY Taking Losartan Potassium 25 MG Tablet 1 tablet Orally Once a day Taking Tamsulosin HCl 0.4 mg Capsule TAKE ONE CAPSULE BY MOUTH TWICE DAILY Taking Pantoprazole Sodium 40 mg Tablet Delayed Release TAKE ONE TABLET BY MOUTH TWICE DAILY Not- TakingFluticasone Propionate 50 MCG/ACT Suspension 1 spray in each nostril Nasally Once a day Benicar 20 MG Tablet 1 tablet Orally Once a day hydroCHLOROthiazide 25 MG Tablet 1 tablet in the morning Orally Once a day Cetirizine HCl 10 mg Tablet TAKE ONE TABLET BY MOUTH DAILY Medication List reviewed and reconciled with the patientNot-Taking Fluticasone Propionate 50 MCG/ACT Suspension 1 spray in each nostril Nasally Once a day Not-Taking Benicar 20 MG Tablet 1 tablet Orally Once a day Not-Taking hydroCHLOROthiazide 25 MG Tablet 1 tablet in the morning Orally Once a day Not- Taking Cetirizine HCl 10 mg Tablet TAKE ONE TABLET BY MOUTH DAILY Medication List reviewed and reconciled with the patient * Allergies:?N.K.D.A.no[Allerg ies Verified] Objective: * Vitals:?Ht: 72 in, Wt:256lbs , Wt-k.12 kg, BMI:34.72Index, Temp:97.2F, BP: 161/102 mm Hg,156/101mm Hg, HR:68/min, RR:18/min, Oxygen sat %:98%, O2 Source: RA, Pain scale: 4 1-10, Ht-cm: 182.88 cm. * Examination: ???General Examination: ?GENERAL APPEARANCE:?alert, well hydrated, in no distress, converses well; , uncomfortable due to pain.?HEAD:?normocephalic, atraumatic.?EYES:?PERRL; normal conjunctiva.?EARS:?....?NECK/THYROID:?neck supple, full range of motion, no JVD, without thyromegaly or masses.?SKIN:?warm and dry.?HEART:?Regular rate and rhythm, S1 S2 normal.?LUNGS:?clear to auscultation bilaterally, no wheezes, rales, or rhonchi.?ABDOMEN:?bowel sounds present; rounded; tender upper right.?EXTREMITIES:?no clubbing, cyanosis, or edema..?NEUROLOGIC:?alert and oriented, cerebellar function normal, cognitive exam grossly normal, gait normal.?PSYCH:?alert, oriented, cognitive function intact, cooperative with exam, good eye contact, mood/affect full range, speech clear.? Assessment: * Assessment: 1.?Primary hypertension - I1 0 (Primary)???2.?Cholecystitis - K81.9??? Plan: * Treatment: ?LAB: Comprehensive Metabolic Panel 15525 (Collection Date & Time - 06/04/2024 12:53 PM)* Betty Rooney 06/05/2024 10: 01:23 PM SENIOR BUSINESS OBJECTS DEVELOPER > decreased gfr ?LAB: Lipid Panel Reflex DLDL [id number], 12633 (Collection Date & Time - 06/04/2024 12:53 PM)* Betty Rooney P 06/05/2024 10: 01:36 PM SENIOR BUSINESS OBJECTS DEVELOPER > ok Notes: losartan bid; monitor bp; cbc cmp lipids??2.?Cholecystitis? Notes: dr conway; surgery as planned??3.?Others? Notes: Questions asked and answered; discharged to home.?? Clinical Notes:Venipuncture:Performed by: Tricia ZAMORA Attempts: x1 Location: [facility] Needle gauge: 21g Patient tolerated well. ? * Procedure Codes:?18667 VENIP UNCT, ROUTINE* * Preventive Medicine:? ??Screenings:?COLORECTAL CANCER SCREENING:?Colorectal screening:?has been completed in the past ?The last colonoscopy showed:?benign polyps ?Date of last colonoscopy?11/01/2022 ?DEPRESSION SCREENING:?Date of most recent screening:?05/17/2024 ?The patient denies:?anxiety, depressed mood, difficulty sleeping, lack of energy, lack of interest in things that were enjoyable, poor appetite, sadness, thoughts of harming him/herself, thought of harming someone else, trouble concentrating, weight gain, weight loss, any depressive symptoms at this time ?Suicidal ideation:?has never been expressed/considered ?Homicidal ideation:?has never been expressed/considered ?PHQ inventory:?with score of 0-4 ?VACCINATIONS:?Influenza vaccinations:?Refuses * Follow Up:?6 Weeks (Reason: recheck) Forms: * Billing Information: * Visit Code:? 48129 Office Visit, Est Pt., Level 3. * Procedure Codes:? 70192 VENIPUNCT, ROUTINE*. Care Plan Details* * OR BUSINESS OBJECTS DEVELOPER Sign off status: Completed true * Provider:?Betty Rooney FINGERER Date:?06/04/20 24 Generated for Ab martins/Faxing/eTransmitting on:?06/10/2024 09:19 AM SENIOR BUSINESS OBJECTS DEVELOPER History and Physical Notes * Examination Category Sub-Category Detail Notes General Examination GENERAL APPEARANCE: alert, w ell hydrated, in no distress, converses well; , uncomfortable due to pain HEAD: normocephalic, atrau matic EYES: PERRL; normal conjun ctiva EARS: ... NECK/THYROID: neck supple, full ra nge of motion, no JVD, without thyromegaly or masses HEART: Regular rate and rhy thm, S1 S2 normal LUNGS: clear to auscultatio n bilaterally, no wheezes, rales, or rhonchi ABDOMEN: bowel sounds present ; rounded; tender upper right NEUROLOGIC: alert and oriented, cerebellar function normal, cognitive exam grossly normal, gait normal SKIN: warm and dry EXTREMITIES: no clubbing, cyanosi s, or edema. PSYCH: alert, oriented, cog nitive function intact, cooperative with exam, good eye contact, mood/affect full range, speech clear
--- OUTSIDE RECORDS SUMMARY | 2024-06-10 09:19 | XMS_ITS ---
Author Name Unknown Organization [facility] Address [address] [place] [address] Care Team Providers Care Campus Chaplain Name Role Phone Betty Rooney Primary Care Provider BETTY ROONEY Unavailable Unavailable REASON FOR VISIT 2 Week F/U Encounters Encounter Location Date Provider Diagnosis [facility] Office [address] [place] [address] 06/01/2024 Betty Rooney Plan Of Treatment Next Appt Details Provider Name:Betty Rooney, 09/03/2024 09:00:00 AM, [address], [address], [place], [address], Progress Notes * Jeff LARSEN DDOB:[birth year] (53 yo M)Acc No.[id number]:06/01/2024 Progress Notes Patient:?Jeff LARSEN Provider:Mike Rooney TRAINING PROGRAM DEVELOPER :1970???Age:53 Y???Sex:Male Khadar e:06/01/2024 Address:[address] [place], [place] [id number] Subjective: * Chief Complaints: * ???1. 2 Week F/U. * Medical History:? Objective: * Vitals:? Assessment: Plan: * Treatment: Forms: * Billing Information: * Visit Code:? * Procedure Codes:? Care Plan Details* * Electronic signature of Kameron Rooney APN on 06/10/2024 at 09:[address] Sign off status: Pending * Provider:Mike Rooney TRAINING PROGRAM DEVELOPER Date:?06/01/20 24 Generated for Ab martins/Hansel/Abrahamitting on:?06/10/2024 09:[address]GE
--- OUTSIDE RECORDS SUMMARY | 2024-06-10 09:20 | XMS_ITS ---
Author Name Unknown Organization [facility] Address [address] [place] [address] Care Team Providers [employer] Salesperson Name Role Phone April Rooney Primary Care Provider [phone] APRIL ROONEY Unavailable Unavailable Allergies No Known Allergies Reason For Referral Reason mutual patient abd pain gastritis Diagnosis 1 Abdominal pain (R10. 9) Diagnosis 2 Gastritis (K29.70) Referral Organization [facility] [place] [facility] Referring Provider First Name April Referring Provider Last Name Rooney Referring Provider Speciality Nurse Cristina marina Referred Provider Marlno Garcias Referred Provider Specialty Surgery Referral Priority Routine REASON FOR VISIT STOMACHE PAIN Medications Medication SIG (Take, Route, Frequency, Duration) Notes Start Date End Date Status hydroCHLOROthiazide 25 MG 1 tablet in th e morning Orally Once a day for 30 day(s) 06/10/2023 Not-Taking Fluticasone Propionate 50 MCG/ACT 1 spray in each nostril Nasally Once a day for 30 days Not-Taking Benicar 20 MG 1 tablet Orally Once a day for 30 day(s) 06/10/2023 Not-Taking Amoxicillin 500 MG 2 caps Orally Twice a day for 14 days 05/17/2024 05/30/2024 Active Clarithromycin 500 MG 1 tablet Orally twice a day for 14 days 05/17/2024 05/30/2024 Active Pantoprazole Sodium 40 mg TAKE ONE TABLE T BY MOUTH TWICE DAILY for 30 days Active Losartan Potassium 25 MG 1 tablet Orally Once a day for 30 days 05/17/2024 Active Cetirizine HCl 10 mg TAKE ONE TABLET BY MOUTH DAILY for 30 Not-Taking Tamsulosin HCl 0.4 mg TAKE ONE CAPSULE BY MOUTH TWICE DAILY for 90 days Active Immunizations Vaccine Route Administration Date Status Comme alysa Chisholmvax Trivalent, Syringe 0.5 mL, PF Unknown 024 Refused Social History Tobacco Use: Social History Observation Description Date Details (start date - stop date) Never Smoker NA - NA xTobacco Use/Smoking Question Answer Notes Are you a nonsmoker PHQ-9 Question Answer Notes Little interest or pleasure in doing things Not at all Feeling down, depressed, or hopeless Not at all Trouble falling or staying asleep, or sleeping t oo much Not at all Feeling tired or having little energy Not at all Poor appetite or overeating Not at all Feeling bad about yourself, or that you are a failure, or have let yourself or your family down Not at all Trouble concentrating on thi ngs, such as reading the newspaper or watching television Not at all Moving or speaking so slowly that other people could have noticed. Or the opposite ? being so fidgety or restless that you have been moving around a lot more than usual Not at all Thoughts that you would be b humberto off , or of hurting yourself in some way Not at all Total Score 0 Problems Problem Type SNOMED Code ICD Code Onset Dates Problem Status W/U Status Risk Notes Problem Gastritis (0645108) Gastritis (K29.70) Active confirmed Problem Benign prostatic hyperplasia (041204601) BPH (benign prostatic hyperplasia) (N40.0) Active confirmed Vital Signs Blood pressure systolic 160 mm Hg 05/17/20 24 Blood pressure diastolic 95 mm Hg 024 Heart Rate 74 /min 05/17/2024 Respiratory Rate 18 /min 05/17/2024 Height 72 in 05/17/2024 Weight 254 lbs 05/17/2024 BMI 34.44 kg/m2 05/17/2024 Oximetry 97 % 05/17/2024 Height-cm 182.88 cm 05/17/2024 Weight-kg 115.21 kg 05/17/2024 Encounters Encounter Location Date Provider Diagnosis [facility] [address] [id number] 05/17/2024 [facility] Rooney Immunization not carried out because of patient refusal Z28.21 ; Abdominal pain R10.9 ; Primary hypertension I10 ; BPH (benign prostatic hyperplasia) N40.0 ; Gastritis K29.70 and Depression screen Z13.31 Assessments Encounter Date Diagnosis (ICD Code) Assessment Notes Treat ment Notes Treatment Clinical Notes 05/17/2024 Immunization not carried out because of patient refusal (ICD-10 - Z28.21) 05/17/2024 Abdominal pain (ICD-10 - R10.9) 05/17/2024 Primary hypertension (ICD-10 - I10) losartan monitor bp 05/17/2024 BPH (benign prostatic hyperplasia) (ICD-10 - N40.0) flomax 05/17/2024 Gastritis (ICD-10 - K29.70) clarithromycin amoxicillin pantoprazole 05/17/2024 Depression screen (ICD-10 - Z13.31) 05/17/2024 Other Questions asked and answered; discharged to home. Plan Of Treatment Medication Medication Name Sig Start Date Stop Date Notes Amoxicillin 500 MG 2 caps Orally Twice a day for 14 days 05/17/2024 05/30/2024 Clarithromycin 500 MG 1 tablet Orally tw ice a day for 14 days 05/17/2024 05/30/2024 Pantoprazole Sodium 40 mg TAKE ONE TABLE T BY MOUTH TWICE DAILY for 30 days Losartan Potassium 25 MG 1 tablet Orally Once a day for 30 days 05/17/2024 Tamsulosin HCl 0.4 mg TAKE ONE CAPSULE B Y MOUTH TWICE DAILY for 90 days Treatment Notes Assessment Notes Primary hypertension losartan monitor bp BPH (benign prostatic hyperplasia) floma x Gastritis clarithromycin amoxicillin pantoprazole Other Questions asked and answered; discharged to home. Referrals Referral Date Details 05/17/2024 05/17/2024, jake ann atient abd pain gastritis, Marlon Garcias Next Appt Details Follow Up: 3 Weeks, Reason: recheck Provider Name:April Rooney, 09/03/2024 09:00:00 AM, [address], [phone], Progress Notes * Jeff LARSEN DDOB:[birth year] (53 yo M)Acc No.[id number]:05/17/2024 Patient:?Jeff LARSEN Provider:?April Rooney PROVIDER NETWORK MGR :1970???Age:53 Y???Sex:Male Khadar e:05/17/2024 Address:[address] [place] [address] [place] , [place]I MCKEE-[id number] Check In:03:32 PM CSTRafael Weiner ut:03:53 PM SPECIAL EDUCATION ADMINISTRATOR Subjective: * Chief Complaints: * ???STOMACHE PAIN * HPI: ???Provider Note:? patient is an alert 53 year old female known to practice and here for complaint of stomach pain taking pantoprazole only? once a day; suggested resume bid upper and lower gi dr garcias; diagnosed with h pylori; diverticulitis; gastritis also removed a lot of polyps; all less than 2 years ago complains most pain upper abd; however also points to bilat flank area of back as well as entire abd pain discussed with patient need us abdomen and pelvis; states is awaiting new insurabnce cards; states supposed to be here next week; they will call when they get a card; go to er is worsens will e script pantoprazole bi as well as clarithromycin and amoxicillin for h pylori gastritis pain goes through to back discussed with patient hypertension; elevated this visit; states he stopped hctz as well as the olmesartan due to made him dizzy; states bp was good with it; but made him feel too bad; will e script losartan 25 mg daily; monitor bp states has recently been over 100 diastolic without medications recheck 3 weeks and prn need labs next week when able continue flomax bid as directed for bph will send progress note dr garcias; encouraged to keep trying to reach his office for his 1 year follow up polyps and gastritis. * ROS:?General - Multi System:?Cardiovascular?REPORTS elevated bp.?Gastrointestinal?REPORTSheartburn abdominal pain adn bloating?.?Musculoskeletal?REPORTS bilateral flank pain?.? * Medical History:? * Surgical History:?Colonoscop y * Hospitalization/Major Diagno stic Procedure:?Denies Past Hospitalization * Family History:?Non-Contribu tory.? * Social History:?Tobacco Use:?xTobacco Use/Smoking?Are you a?nonsmoker ???Depression Screening:?PHQ-9?Little interest or pleasure in doing things?Not at all ?Feeling down, depressed, or hopeless?Not at all ?Trouble falling or staying asleep, or sleeping too much?Not at all ?Feeling tired or having little energy?Not at all ?Poor appetite or overeating?Not at all ?Feeling bad about yourself, or that you are a failure, or have let yourself or your family down?Not at all ?Trouble concentrating on things, such as reading the newspaper or watching television?Not at all ?Moving or speaking so slowly that other people could have noticed. Or the opposite ? being so fidgety or restless that you have been moving around a lot more than usual?Not at all ?Thoughts that you would be better off , or of hurting yourself in some way?Not at all ?Total Score?0 ?Depression screening findings?Findings?Negative (0-4) ???Depression screen completed 05/17/2024 score 0. * Medications:?TakingTamsulosi n HCl 0.4 mg Capsule TAKE ONE CAPSULE BY MOUTH TWICE DAILY Pantoprazole Sodium 40 mg Tablet Delayed Release TAKE ONE TABLET BY MOUTH TWICE DAILY Taking Tamsulosin HCl 0.4 mg Capsule TAKE ONE CAPSULE BY MOUTH TWICE DAILY Taking Pantoprazole Sodium 40 mg Tablet Delayed Release TAKE ONE TABLET BY MOUTH TWICE DAILY Not-TakingFluticasone Propionate 50 MCG/ACT Suspension 1 spray in [...] in the morning Orally Once a day Not-Taking Cetirizine HCl 10 mg Tablet TAKE ONE TABLET BY MOUTH DAILY Medication List reviewed and reconciled with the patient * Allergies:?N.K.D.A.no[Allerg ies Verified] Objective: * Vitals:?Ht: 72 in, Wt:254lbs , Wt-k.21 kg, BMI:34.44Index, BP: 154/96 mm Hg,160/95mm Hg, HR:74/min, RR:18/min, Oxygen sat %:97%, O2 Source: RA, Pain scale: 5 1-10, Ht-cm: 182.88 cm. * Examination: ???General Examination: ?GENERAL APPEARANCE:?alert, well hydrated, in no distress, converses well uncomfortable due to pain, abd.?HEAD:?normocephalic, atraumatic.?EYES:?PERRL; normal conjunctiva.?EARS:?....?NECK/THYROID:?neck supple, full range of motion, no JVD, without thyromegaly or masses.?SKIN:?warm and dry.?HEART:?Regular rate and rhythm, S1 S2 normal.?LUNGS:?clear to auscultation bilaterally, no wheezes, rales, or rhonchi.?ABDOMEN:?rounded. distended somewhat;, bowel sounds present tender to light palpation upper epigastric area.?EXTREMITIES:?no clubbing, cyanosis, or edema..?NEUROLOGIC:?alert and oriented, cerebellar function normal, cognitive exam grossly normal, gait normal.?PSYCH:?alert, oriented, cognitive function intact, cooperative with exam, good eye contact, mood/affect full range, speech clear.? Assessment: * Assessment: 1.?Abdominal pain - R10.9 (P rimary)???2.?Immunization not carried out because of patient refusal - Z28.21???3.?Primary hypertension - I10???4.?BPH (benign prostatic hyperplasia) - N40.0???5.?Gastritis - K29.70???6.?Depression screen - Z13.31??? Plan: * Treatment: 2.?Primary hypertension? Start Losartan Potassium Tablet, 25 MG, 1 tablet, Orally, Once a day, 30 days, 30, Start Date: 05/17/2024, Refills 5.?? Notes: losartan monitor bp?? 3.?BPH (benign prostatic hyp erplasia)? Refill Tamsulosin HCl Capsule, 0.4 mg, TAKE ONE CAPSULE BY MOUTH TWICE DAILY, 90 days, 180 Capsule, Refills 4.?? Notes: flomax?? 4.?Gastritis? Start Clarithromycin Tablet, 500 MG, 1 tablet, Orally, twice a day, 14 days, 28 Tablet, Start Date: 05/17/2024, Stop Date: 05/30/2024, Refills 0;?Start Amoxicillin Capsule, 500 MG, 2 caps, Orally, Twice a day, 14 days, 56 Capsule, Start Date: 05/17/2024, Stop Date: 05/30/2024, Refills 0;?Refill Pantoprazole Sodium Tablet Delayed Release, 40 mg, TAKE ONE TABLET BY MOUTH TWICE DAILY, 30 days, 60 Tablet, Refills 4.?? Notes: clarithromycin amoxicillin pantoprazole? Referral To:Marlon Garcias??Surgery ?Reason:mutual patient abd pain gastritis 5.?Others? Notes: Questions asked and answered; discharged to home.?? * Immunizations:? Flucelvax Trivalent, Syringe 0.5 mL, PF (Not administered - Refused: Patient decision) (Immunization not carried out because of patient refusal) * Procedure Codes:?69515 BRIEF EMOTIONAL/BEHAV ASSMT * Preventive Medicine:? ??Screenings:?COLORECTAL CANCER SCREENING:?Colorectal screening:?has [...] score of 0-4 ?VACCINATIONS:?Influenza vaccinations:?Refuses * Follow Up:?3 Weeks (Reason: recheck) * Billing Information: * Visit Code:? 36577 Office Visit, Est Pt., Level 3. * Procedure Codes:? 26226 BRIEF EMOTIONAL/BEHAV ASSMT. * Sign off status: Completed true * Provider:?April Rooney PROVIDER NETWORK MGR Date:?05/17/20 24 Generated for Ab martins/Fafaridag/eTransmitting on:?06/10/2024 09:19 AM SPECIAL EDUCATION ADMINISTRATOR History and Physical Notes * Examination Category Sub-Category Detail Notes General Examination GENERAL APPEARANCE: alert, w ell hydrated, in no distress, converses well uncomfortable due to pain, abd HEAD: normocephalic, atrau matic EYES: PERRL; normal conjun ctiva EARS: ... NECK/THYROID: neck supple, full ra nge of motion, no JVD, without thyromegaly or masses HEART: Regular rate and rhy thm, S1 S2 normal LUNGS: clear to auscultatio n bilaterally, no wheezes, rales, or rhonchi ABDOMEN: rounded. distended s omewhat;, bowel sounds present tender to light palpation upper epigastric area NEUROLOGIC: alert and oriented, cerebellar function normal, cognitive exam grossly normal, gait normal SKIN: warm and dry EXTREMITIES: no clubbing, cyanosi s, or edema. PSYCH: alert, oriented, cog nitive function intact, cooperative with exam, good eye contact, mood/affect full range, speech clear Consultation Request Notes Referral Date Referring Provider Referred Provider Not es 05/17/2024 April Rooney Anthony mutual pat ient abd pain gastritis
--- OUTSIDE RECORDS SUMMARY | 2024-06-10 09:20 | XMS_ITS | Patient Health Record ---
Author Name Unknown Organization [facility] Address [address] [place] [address] Care Team Providers Care Hair Dresser Name Role Phone Rooney, April Primary Care Provider ROONEY, APRIL Unavailable Unavailable Evan Palm Unavailable Allergies No Known Allergies Results Component Value Reference Range Notes CBC w\ Auto Diff [id number] Reviewed date:06/05/2024 10:00:52 PM Interpretation: Performing Lab: [...] 40.0-70.0 % Lymph Auto% 30.3 22.0-44.0 % [place] Auto% 7.2 3.0-7.0 % Eos Auto% 2.2 2.0-4.0 % Baso Auto% 1.5 0.0-1.0 % Imm Gran% .2 .0-.4 % Neutro Abs 2.67 .80-7.70 Absolute Neutrophil Count 2670 Lymph Abs 1.38 .10-4.10 [place] Abs .33 .20-1.00 Eos Abs .10 .00-.40 Baso Abs .07 .00-.20 Imm Gran Abs .01 .00-.10 NRBC# .00 .00-.20 NRBC% .00 .00-.20 /100 int act WBC's Comprehensive Metabolic Pane l [id number] Reviewed date:06/05/2024 10:01:26 PM Interpretation: Performing Lab: Notes/Report: Diagnosis Description: Essential (primary) hypertension Glucose Serum 97 71-110 MG/DL Testing perfor med at [facility], [address] [place] [address] [place] [address]. CLIA ID#: [id number] BUN 16 7-21 MG/DL Creat 1.23 .57-1.17 MG/DL E-pqyxln-t-benzoquinone imine (NAPQI) is a metabolite of acetaminophen, [...] MOSM/KG Lipid Panel Reflex DLDL 8006 1, [id number] Reviewed date:06/05/2024 10:01:38 PM Interpretation: Performing Lab: [...] , if Trig is >400 mg/dl. See DLD result. PSA Medicare Screening--G010 3 Reviewed date:06/17/2023 04:42:46 PM Interpretation: Performing Lab: Notes/Report: Diagnosis Description: Encounter for screening for malignant neoplasm of prostate PSA .58 .00-4.00 NG/ML PSA concentra tions, regardless of the value, should not be interpreted as definitive evidence for the presence or absence of prostate cancer. Thyroxine (T4) 61582 Reviewed date:06/17/2023 04:43:29 PM Interpretation: Performing Lab: Notes/Report: Diagnosis Description: Encounter for screening for other suspected endocrine disorder ThyroxinT4 10.6 4.5-12.1 MCG/DL Thyroid Stimulating Hormone (TSH) 00587 Reviewed date:06/17/2023 04:43:49 PM Interpretation: Performing Lab: Notes/Report: Diagnosis Description: Encounter for screening for other suspected endocrine disorder TSH 1.746 .358-3.740 MlU/ML Lipid Panel Reflex DLDL 8006 1, 48726 Reviewed date:06/17/2023 04:43:39 PM Interpretation: Performing Lab: Notes/Report: Diagnosis Description: Essential (primary) hypertension Trig 163 Classification Guidelines:Triglycerides Adults: >20yrs Desirable <150 Borderline High 150-199 High 200-499 Very high >=500 Children: Male 0-4 yr 22-99 5-9 yr 30-101 10-14 yr 32-125 15-19 yr 37-148 Children: Female 0-4 yr 34-112 5-9 yr 32-105 10-14 yr 37-131 15-19 yr 39-132 Chol 156 <=200 MG/DL HDL 46 30-72 MG/DL Reference Ranges:HDL Male: 5-9y 38-75 10-14y 37-74 15-19y 30-63 >=20y 40-59 Female: 5-9y 36-73 10-14y 37-70 15-19y 35-74 >=20y 40-59 CH/HDL 3.4 0.0-4.9 RATIO LDL 78 0-130 MG/DL LDL result is i naccurate , if Trig is >400 mg/dl. See DLDL result. Comprehensive Metabolic Pane l [id number] Reviewed date:06/17/2023 04:43:03 PM Interpretation: Performing Lab: Notes/Report: Diagnosis Description: Essential (primary) hypertension Glucose Serum 96 71-110 MG/DL Testing perfor med at [facility], [address] [place] [address] [place] [address]. CLIA ID#: [id number] BUN 19 7-21 MG/DL Creat 1.19 .57-1.17 MG/DL T-ywwdkr-t-benzoquinone imine (NAPQI) is a metabolite of acetaminophen, [...] the potential for falsely depressed results. GFR 73.0 Calculation per formed from GFR calculator provided by the [employer]. Glomerular Filtration rate(GRF) is the best overall index of kidney function. Normal GFR varies according to age,sex, body size, and declines with age. The National Kid[employer] Foundation recommends using the CKD-EPI Creatinine Equation(2009) to estimate GFR. BUN/Creat Ratio 16.0 12.0-20.0 % Total Protein 7.4 5.8-8.0 G/DL Albumin 4.8 3.2-4.8 G/DL Globulin 2.6 2.3-3.5 G/DL Alb/Glob 1.8 0.8-2.2 Calcium 9.6 8.7-10.4 MG/DL Sodium 140 136-145 MMOL/L Potassium 4.6 3.5-5.1 MMOL/L Chloride 102 98-107 MMOL/L CO2 28.2 20.0-31.0 MMOL/L Anion Gap 14 5-15 Alk Phos 120 46-116 Bili Total .6 .3-1.2 MG/DL Use of this ass ay is not recommended for patients undergoing treatment with eltrombopag due to the potential for falsely elevated results. AST/SGOT 30 15-37 UNIT/L ALT/SGPT 79 12-78 UNIT/L Osmo Serum,Calculated 292 280-300 MOSM/KG CBC w\ Auto Diff [id number] Reviewed date:06/17/2023 04:43:16 PM Interpretation: Performing Lab: Notes/Report: Diagnosis Description: Essential (primary) hypertension WBC 9.7 4.5-11.0 X10'3 RBC 5.68 4.50-5.90 X10'6 Hgb 16.9 13.5-17.5 G/DL Hct 50.2 41.0-53.0 % MCV 88.4 80.0-100.0 FL MCH 29.8 27.0-31.0 PG MCHC 33.7 31.0-37.0 G/DL Platelet 328 150-400 X10'3 RDW-SD 41.4 35.0-49.0 FL RDW-CV 12.8 12.2-15.6 % MPV 11.0 9.2-12.0 FL Neutro Auto% 66.7 42.0-75.0 % Lymph Auto% 23.2 21.0-51.0 % [place] Auto% 6.6 1.7-9.3 % Eos Auto% 2.1 .0-6.0 Baso Auto% 0.6 0.0-1.0 Imm Gran% .8 .0-.4 % Neutro Abs 6.45 .80-7.70 Absolute Neutrophil Count 6450 Lymph Abs 2.25 .10-4.10 [place] Abs .64 .20-1.00 Eos Abs .20 .00-.40 Baso Abs .06 .00-.10 Imm Gran Abs .08 .00-.10 NRBC# .00 .00-.20 NRBC% .00 .00-.20 /100 int act WBC's Reason For Referral Reason abnormal ekg Diagnosis 1 Abnormal EKG (R94.31 ) Referral Organization [facility] Referring Provider First Name April Referring Provider Last Name Rooney Referring Provider Speciality Nurse Cristina marina Referred Provider Serina Avila Referred Provider Specialty Cardiovascul ar Disease General Notes Estrella Soto 06/20 12:56:44 PM >Spoke with Shae at [facility]. Patient has apt on 07/22/2023 at 3:30, Estrella Soto 09/12/2023 08:51:20 AM >See referral notes Referral Priority Routine Referral Appointment Date 07/22/2023 Reason mutual patient abd pain gastritis Diagnosis 1 Abdominal pain (R10. 9) Diagnosis 2 Gastritis (K29.70) Referral Organization [facility] Referring Provider First Name April Referring Provider Last Name Rooney Referring Provider Speciality Nurse Cristina marina Referred Provider Marlon Garcias Referred Provider Specialty Surgery Referral Priority Routine Medications Medication SIG (Take, Route, Frequency, Duration) Notes Start Date End Date Status Losartan Potassium 25 MG 1 tablet Orally twice a day for 30 days 05/17/2024 Active Pantoprazole Sodium 40 mg TAKE ONE TABLE T BY MOUTH TWICE DAILY for 30 days Active Fluticasone Propionate 50 MCG/ACT 1 spray in each nostril Nasally Once a day for 30 days Not-Taking Benicar 20 MG 1 tablet Orally Once a day for 30 day(s) 06/10/2023 Not-Taking Tamsulosin HCl 0.4 mg TAKE ONE CAPSULE B Y MOUTH TWICE DAILY for 90 days Active hydroCHLOROthiazide 25 MG 1 tablet in morning Orally Once a day for 30 day(s) 06/10/2023 Not-Taking Cetirizine HCl 10 mg TAKE ONE TABLET BY MOUTH DAILY for 30 Not-Taking Immunizations Vaccine Route Administration Date Status Comme nts Flucelvax Trivalent, Syringe 0.5 mL, PF Unknown 024 Refused Social History Tobacco Use: Social History Observation Description Date Details (start date - stop date) Never Smoker NA - NA xTobacco Use/Smoking Question Answer Notes Are you a nonsmoker Alcohol Screen (Audit-C) Question Answer Notes Did you have a drink containing alcohol in the p ast year? No Points 0 Interpretation Negative PHQ-9 Question Answer Notes Little interest or [...] Problem Status W/U Status Risk Notes Problem Sinusitis (13299947) Sinusitis (J32.9) Active confirmed Problem Gastritis (4947589) Gastritis (K29.70) Active confirmed Problem Benign prostatic hyperplasia (930338716) BPH (benign prostatic hyperplasia) (N40.0) Active confirmed Problem 116795031 Environmental allergies (Z91.09) Active confirmed Problem 747273149 Gastroesophageal reflux disease, unspecified whether esophagitis present (K21.9) Active confirmed Problem 00181198 Primary hypertension (I10) Active confirmed Problem Elevated levels of transaminase & lactic acid dehydrogenase (032508257) Elevated SGPT (ALT) (790.4) 004 Problem resolved confirmed Sung-985 911- Problem Generalized abdominal pain (898678532) Generalized abdominal pain (789.07) 004 Problem resolved confirmed Sung-985 911- Problem Acute upper respiratory infection (48953967) Acute upper respiratory infection (465.8) 004 Problem resolved confirmed [facility]-985 911- Vital Signs Heart Rate 68 /min 06/04/2024 Temperature 97.2 degrees Fahrenheit 06/04/2024 Respiratory Rate 18 /min 06/04/2024 Blood pressure diastolic 101 mm Hg 06/04/2024 Oximetry 98 % 06/04/2024 Height-cm 182.88 cm 06/04/2024 Weight-kg 116.12 kg 06/04/2024 Height 72 in 06/04/2024 Blood pressure systolic 156 mm Hg 06/04/2024 Weight 256 lbs 06/04/2024 BMI 34.72 kg/m2 06/04/2024 Encounters Encounter Location Date Provider Diagnosis [facility] [address] [place] [address] 06/17/2023 [facility] Primary hypertension I10 ; Other chest pain R07.89 and Abnormal EKG R94.31 [facility] [address] [place] [address] 06/23/2023 [facility] [address] [place] [address] 06/30/2023 [facility] [address] [place] [address] 08/19/2023 [facility] [address] [place] [address] 06/04/2024 [facility] Primary hypertension I10 and Cholecystitis K81.9 [facility] [address] [place] [address] 06/10/2023 [facility] Primary hypertension I10 ; Sinusitis J32.9 ; Environmental allergies Z91.09 and Unspecified infectious disease B99.9 [facility] [address] [place] [address] 05/17/2024 [facility] Immunization not car ried out because of patient refusal Z28.21 ; Abdominal pain R10.9 ; Primary hypertension I10 ; BPH (benign prostatic hyperplasia) N40.0 ; Gastritis K29.70 and Depression screen Z13.31 [facility] [address] [address] 06/16/2023 [facility] Primary hypertension I10 ; Prostate cancer screening Z12.5 and Thyroid disorder screen Z13.29 Assessments Encounter Date Diagnosis (ICD Code) Assessment Notes Treat ment Notes Treatment Clinical Notes 06/10/2023 Sinusitis (ICD-10 - J32.9) medrol dose pack amoxicillin 06/10/2023 Primary hypertension (ICD-10 - I10) benicar hctz monitor bp asa 81 mg 06/16/2023 Primary hypertension (ICD-10 - I10) 06/17/2023 Other chest pain (ICD-10 - R07.89) 06/17/2023 Primary hypertension (ICD-10 - I10) 05/17/2024 Immunization not carried out because of patient refusal (ICD-10 - Z28.21) 05/17/2024 Abdominal pain (ICD-10 - R10.9) 06/04/2024 Cholecystitis (ICD-10 - K81.9) dr garcias; surgery as planned 06/04/2024 Primary hypertension (ICD-10 - I10) losartan bid; monitor bp; cbc cmp lipids 05/17/2024 Primary hypertension (ICD-10 - I10) losartan monitor bp 06/17/2023 Abnormal EKG (ICD-10 - R94.31) refer dr avila as requested 06/16/2023 Prostate cancer screening (ICD-10 - Z12.5) 06/10/2023 Environmental allergies (ICD-10 - Z91.09) flonase zyrtec 06/10/2023 Unspecified infectious disease (ICD-10 - B99.9) 06/16/2023 Thyroid disorder screen (ICD-10 - Z13.29) 05/17/2024 BPH (benign prostatic hyperplasia) (ICD-10 - N40.0) flomax 05/17/2024 Gastritis (ICD-10 - K29.70) clarithromycin amoxicillin pantoprazole 05/17/2024 Depression screen (ICD-10 - Z13.31) 06/10/2023 Other tw Questions as ked and answered; discharged to home. 06/16/2023 Other Venipuncture performed. Right arm. One attempt. Pt tolerated well, bleeding controlled with light dressing. 05/17/2024 Other Questions asked and answered; discharged to home. 06/04/2024 Other Questions asked and answered; discharged to home. Venipuncture: Performed by: Tricia ZAMORA Attempts: x1 Location: RAC Needle gauge: 21g Patient tolerated well. Plan Of Treatment Next Appt Details Provider Name:April Rooney, 09/03/2024 09:00:00 AM, [address] [place] [address] [address], [place], [address], Insurance Providers Payer Name Payer Address Payer Phone Subscriber Number Group Number Insured Name Patient Relationship to Insured Coverage Start Date Coverage End Date Katrina [address] [place] [phone] [id number] Jeff Larsen Self - patient is the insured Medications Administered Medication Instructions Date of Administration Dosage Notes DEPO-Medrol 01/06/2023 40 mg [facility] [phone] 3-01 pt tolerated well/instructed to wait 20 min dexAMETHasone 08/28/2022 8 mg [facility]-56552-5 239-30 Patient tolerated well dexAMETHasone 01/06/2023 4 mg [facility] 73763-5 423-00 pt tolerated well/instructed to wait 20 min Medical (General) History Medical History History ICD Code High Blood Pressure Surgical History Surgery Date(Month/Year) Covid Colonoscopy 2022
--- NOTE | 2024-06-10 10:06 | W.PM.OPSUD ---
Surgery/Procedure H&P Update DATE OF PROCEDURE: June 10, 2024 DATE H&P PERFORMED: 06/03/24 H&P UPDATE INFORMATION: I have reviewed H&P completed within last 30 days, I have examined patient prior to procedure and No changes to prior documentation PLANNED PROCEDURE: Operation Date: 06/10/24 10:55 Proposed Procedures p Laparoscopic Cholecystectomy - 85849, K80.20(Not Applicable) - Marlon Garcias, DO
[2024-06-10] MEDS: sodium chloride 0.9% 1,000 ML 30 ML IV (10:34)
--- NOTE | 2024-06-10 10:42 | ANES.PREANE2 ---
Pre-Anesthetic Assessment Height/Weight: Height 1.83 m Weight 115.666 kg Temp Pulse Resp BP Pulse Ox O2 Del Method 98.3 F 76 16 141/106 95 Room Air 06/10/24 09:55 06/10/24 09:55 06/10/24 09:55 06/10/24 09:55 06/10/24 09:55 06/10/24 10:32 Operation Date: 06/10/24 10:55 Proposed Procedures p Laparoscopic Cholecystectomy - 12227, K80.20(Not Applicable) - Marlon Garcias DO Familial anesthetic complications: none Was Beta Toni taken within 24 hours: N/A Was Clonidine taken within 24 hours: N/A Last intake: Intake Last Liquid Date 06/09/24 Last Liquid Time 18:00 Last Solid Date 06/09/24 Last Solid Time 18:00 Social No alcohol and No tobacco Exam alert, oriented x 3, clear to auscultation bilaterally and regular rate & rhythm Airway Mallampati: Class III Dentition: chipped CV/HEM Hypertension GI Gastroesophageal Reflux Disease Anesthetic Plan ASA status: 2 Anesthesia: General Risk of > 500 ml blood loss (7ml/kg in children): No Medications/Allergies Home Medications Medication Instructions Recorded Confirmed Last Taken Type tamsulosin 0.4 mg capsule (Flomax) 0.4 mg PO BID 90 days #180 caps 08/06/22 06/09/24 06/09/24 Rx pantoprazole 40 mg tablet,delayed 40 mg PO BID 6 weeks #84 tabs 11/21/22 06/09/24 06/09/24 Rx release (Protonix) losartan 25 mg tablet 25 mg PO DAILY 06/09/24 06/09/24 06/09/24 History Allergies Allergy/AdvReac Type Severity Reaction Status Date / Time No Known Allergies Allergy Verified 07/22/23 15:35 Current Medications Generic Name Dose Route Start Last Admin Trade Name Freq PRN Reason Stop Dose Admin Sodium Chloride 1,000 mls @ 30 mls/hr 06/10/24 09:30 06/10/24 10:34 Sodium Chloride 0.9% IV 06/11/24 09:29 30 mls/hr .Q24H YESSY Administration PFSH Anesthesia Surgical History Hx of hand surgery Right hand/ digit 3 Family History Father Cancer carcinoma Social History Smoking and tobacco/nicotine status: never used tobacco/nicotine Alcohol intake: never Data Anesthesia Cardiac Studies: Echocardiogram 01/10/23 Sestamibi Stress Test (Cardiology) 07/18/23
[2024-06-10] MEDS: ceFAZolin 2,000 mg SDV 2000 MG IVP (11:34)
[2024-06-10] MEDS: lidocaine-epi 2% PF 1:200,000 20 mL SDV XX (12:10)
--- NOTE | 2024-06-10 13:02 | P.OP_ITS ---
Operative Report Date of procedure: June 10, 2024 Surgeon: Marlon Garcias DO Brief History: This is a very pleasant 53-year-old gentleman who presented my office with abdominal pain. He was diagnosed with symptomatic cholelithiasis. Laparoscopic cholecystectomy was indicated. Risk and benefits were explained and documented. Procedure: Preoperative diagnosis: Symptomatic cholelithiasis Postoperative diagnosis: Same Procedure performed: Laparoscopic cholecystectomy Surgeon: Dr. Marlon Garcias DO Estimated blood loss: 5 mL Specimens: Gallbladder to pathology Complications: None apparent Description of procedure: Patient was wheeled into the operative room and placed on the OR table in a supine position. Abdomen was inspected prepped and draped in usual sterile fashion. Time-out was performed and all present were in agreement. A 15 blade scalp was used to make a stab incision in the left upper quadrant and intra- abdominal insufflation was achieved using a Veress needle. After localizing the tissue incisions were made and a 5 millimeter trocar was placed into the umbilicus as well as 2 in the right upper quadrant. A 12 millimeter trocar was placed in the epigastrium. Gallbladder was grasped and elevated. The triangle of Calot was carefully dissected using blunt dissection and electrocautery until the triangle of Calot clearly identified. The cystic duct was clipped proximally and double clipped distally. The duct was then ligated proximally. The cystic artery was doubly clipped and ligated. The gallbladder was then removed from the liver bed using electrocautery. The gallbladder was removed from the abdomen using an Endo-Catch bag through the epigastric incision. The liver bed was inspected and no bleeding was seen. The abdomen was irrigated and suctioned. All ports removed. Skin was washed and dried. Incisions were closed with 4-0 Monocryl in a subcuticular interrupted fashion. Skin glue was applied. Patient tolerated the procedure well.
[2024-06-10] MEDS: fentaNYL 50 mcg/mL INJ 2mL IVP ×2 (13:10→13:15)
--- NOTE | 2024-06-10 13:50 | SUR.PHASEII ---
13:50 warm blankets applied. Indirect warm air applied.
--- NOTE | 2024-06-10 15:20 | ANE.PACU2 ---
Inpatient post-anesthesia follow up: Airway intact: Yes Vital signs: Temperature 98.5 F Pulse Rate 78 Respiratory Rate 16 Blood Pressure 142/89 Pulse Oximetry 95 Oxygen Delivery Me thod Room Air Oxygen Flow Rate 8 Fraction of Inspir ed Oxygen Hydration adequate: Yes Nausea and vomiting: No Pain level: 1 Mental status: Baseline
== END 2024-06-10 15:20 | disposition home or self-care (01) ==
PROVIDERS: PCP Nurse Practitioner Family; Visit Provider Surgery
PROC: 0FT44ZZ Resection of Gallbladder, Percutaneous Endoscopic Approach (ICD-10-PCS; CPT 47562; principal; 2024-06-10 10:55)
DX: K80.10 Calculus of gallbladder with chronic cholecystitis without obstruction (principal); I10 Essential (primary) hypertension; K21.9 Gastro-esophageal reflux disease without esophagitis
CPT/HCPCS: 47562; 88304; J0690; J1100; J2405; J2704; J3010; J3490; J7030

== ENCOUNTER 2025-07-04 16:56 | Outpatient (CLI) | payer OTHER, SELFPAY ==
--- NOTE | 2025-07-04 17:10 | CT_ITS ---
WS: [id number] CT ABDOMEN AND PELVIS WITH CONTRAST HISTORY: FLANK PAIN, LEFT TECHNIQUE: Imaging performed of the abdomen and pelvis with IV contrast. Single phase imaging of the abdomen. Coronal and sagittal reformats are submitted. All CT scans at [facility] use at least one of these dose optimization techniques: automated exposure control; mA and/or kV adjustment per patient size (includes targeted exams where dose is matched to clinical indication); or iterative reconstruction. IV CONTRAST: Omnipaque 350; 100 mL IV. Oral contrast: No DLP: 932.80 mGy.cm COMPARISON: 05/08/2016 Lower thorax: Stable nodules at the lung bases. No mass. Heart is normal size. No hiatal hernia. Liver/biliary system: Normal size with no intrahepatic dilatation. Gallbladder: Prior cholecystectomy. Pancreas: Mild fatty replacement. Spleen: Normal size spleen. No mass or infarct. Adrenal glands: Normal. Right kidney: Normal size kidney with no obstruction. There is a low-attenuation mass in the central kidney measuring 1.7 x 1.6 x 1.8 cm. There are a few additional too small to characterize cortical hypodensities. No obstruction. No calcifications. Left kidney: Normal. Aorta: Normal. Lymphadenopathy: There are few small scattered mesenteric lymph nodes on a background of mesenteric panniculitis. Fatty encapsulation noted also on the study from 2016 appears slightly more progressed. Lymph nodes measure up to 10 mm. Minimal increase in size of these lymph nodes since 2016. Free fluid: None. GI tract: Stomach is distended with food products. No small bowel obstruction. Normal appendix. Diverticular disease. No evidence for acute diverticulitis. Abdominal wall: Unremarkable abdominal wall. No hernia. Pelvis: No free fluid or adenopathy within the pelvis. Enlarged prostate gland with central dense calcifications. Bones: Mild degenerative changes in the lower thoracic and lumbar spines. Single sclerotic focus in the anterolateral LEFT sixth rib. May be a small bone island. No destruction of the cortex. CT/CT abdomen pelvis w con* [id number] IMPRESSION: 1. No acute abdominal or pelvic abnormalities. 2. No renal obstruction or hydronephrosis. 3. Solid mass is indeterminate in the central RIGHT kidney. Mass measures 1.7 x 1.6 x 1.8 cm. Recommend follow-up CT or MRI evaluation which should include w ith and without IV contrast. Renal cell neoplasm is not excluded. 4. Mesenteric panniculitis with central lymph nodes. Previously described on with mild progression. Mild progression of lymph nodes associated wit h the mesenteric panniculitis with the largest measuring 10 mm. 5. No ascites. 6. Prior cholecystectomy. 7. Mild constipation and diverticular disease in the colon. No acute diverticu litis.
[2025-07-04] MEDS: iohexol 350 mg/mL 500 mL Btl (per mL) IV (17:28)
== END 2025-07-04 16:57 | disposition home or self-care (01) ==
LOC: RAD 16:57
PROVIDERS: PCP Internal Medicine; Visit Provider Internal Medicine
DX: K57.90 Diverticulosis of intestine, part unspecified, without perforation or abscess without bleeding (principal); K86.89 Other specified diseases of pancreas; N28.89 Other specified disorders of kidney and ureter; R59.0 Localized enlarged lymph nodes; N40.0 Benign prostatic hyperplasia without lower urinary tract symptoms; M47.814 Spondylosis without myelopathy or radiculopathy, thoracic region; M47.816 Spondylosis without myelopathy or radiculopathy, lumbar region; Z90.49 Acquired absence of other specified parts of digestive tract
CPT/HCPCS: 74177

== ENCOUNTER 2025-07-08 07:50 | Outpatient (CLI) | payer OTHER, SELFPAY ==
[2025-07-08 08:27] VITALS: BMI 35.9
--- NOTE | 2025-07-08 08:34 | NMCV_ITS ---
NM erlin perf SPECT r/s* [id number] Jeff Larsen Age: 54 Gender: M : 1970 Exam Date: 07/08/2025 08:44 Ordering Phys: Hernan Palm MD Technologist: PRESTON Rios Exam [facility]: [facility] Indications: cp STRESS TEST Please see separate stress test report in [facility] for full findings IMAGE PROTOCOL Rest/Stress 1 Lexiscan Day Radiopharmaceutical Dose (mCi) Administration Site Administered by Rest: Tc-99m 10.3 IV PRESTON Noe Sestamibi Stress:Tc-99m 32.9 IV PRESTON Rios Sestamipatrick Rest: 08-Jul-2025 60 Discovery 630 Stress: 08-Jul-2025 30 Discovery 630 0.4mg Lexiscan. Images obtained in supine and prone position. SPECT RESULTS Technical Quality: Good Raw Data Analysis: Normal Image Corrections: No attenuation or motion correction applied Summed Stress Score: 2 Summed Rest Score: 1 Summed Difference Score: 2 PERFUSION FINDINGS SPECT images demonstrate homogeneous tracer distribution throughout the myocardium. FUNCTIONAL RESULTS (calculated via Gated SPECT) Stress Image LV EF (%): 68 Stress EDV (mL):93 TID: 0.88 Stress ESV (mL):30 FUNCTIONAL FINDINGS: There is normal left ventricular systolic function. IMPRESSIONS Myocardial perfusion imaging is normal. Jay Gee MD (Electronically Signed) Final Date: 08 July 2025 10:53 Amended: 08 July 2025 11:03 C
--- NOTE | 2025-07-08 08:34 | ECG_ITS ---
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 The perfusion scan will be documented separately. DATA: Baseline heart rate was 72 beats per minute. Baseline blood pressure was 136/101 millimeters of mercury. Target heart rate was 165. Maximum heart rate achieved was 111. which was 67% of the predicted target heart rate. Maximum blood pressure was 147/102 millimeters of mercury. The reason for ending the test was completion of the protocol. The patient did not experience any symptoms. ELECTROCARDIOGRAM: BASELINE: Sinus rhythm. Normal axis. Otherwise, no ST-T changes suggestive of ischemia noted. No arrhythmia noted. EXERCISE: After Lexiscan injection, no ST-T changes suggestive of ischemic noted. No arrhythmia noted. CONCLUSION: Please note due to baseline abnormality of the EKG specificity and sensitivity of the EKG portion of LexiScan MIBI stress test will be low 1. EKG not suggestive of ischemia 2. Lexiscan injection unremarkable. 3. Perfusion scan will be documented separately. Electronically Signed On 07-21-2025 18:09:51 ACTIVITIES OFFICER by JOSE F HERRERA [email or web address]
[2025-07-08 09:30] VITALS: BP 143/88; PULSE 88
== END 2025-07-08 07:51 | disposition home or self-care (01) ==
LOC: CDL 07:54
PROVIDERS: PCP Internal Medicine; Visit Provider Internal Medicine
DX: R07.89 Other chest pain (principal)
CPT/HCPCS: 36415; 78452; 93017; 96374; A9500; J2785